=== PATIENT | male | born 1945 | race Caucasian/White ===

== ENCOUNTER 2018-06-29 18:26 | Inpatient (IN) | payer MEDICARE, MEDICAID ==
[2018-06-29 18:26] VITALS: BMI 32.9
[2018-06-29] MEDS ORDERED: Iodixanol 320 MG/ML 100 ML BOTTLE IV ONE (19:35)
--- NOTE | 2018-06-29 20:22 | ED PDOC ---
HPI:STROKE - Time Time: 20:16 - Historian Historian: Patient, Family - Chief Complaint Chief Complaint: Slurred speech - Onset Date: 06/29/18 Time: 17:30 - Timing Timing: Currently Symptomatic - Location Location: Speech - Notes: Notes:: Hx of CAD, HTN, COPD, chronic neck and back pain presenting with abnormal jaw movement and difficulty speaking, states that it occurred around 5:30, states that he felt like he can't control his jaw and it keeps moving to the left and he can't speak normally. States he has no headache, no weakness/numbness/loss of function of extremeties, no vision changes, no difficulty walking, or any other symptoms. Denies chest pain, shortness of breath. NIHSS Stroke Scale - Date/Time Evaluation Performed Date Performed: 06/29/18 When Was NIHSS Performed: Baseline - How Severe is the Stroke Level of Consciousness: 0=Alert LOC to Questions: 0=Both comments correct LOC to commands: 0=Obeys both correctly Best Gaze: 0=Normal Visual: 0=No visual loss Facial: 1=Minor asymmetry Motor Arm - Left: 0=No drift Motor Arm - Right: 0=No drift Motor Leg - Left: 0=No drift Motor Leg - Right: 0=No drift Limb Ataxia: 0=Absent Sensory: 0=Normal Best Language: 0=No aphasia Dysarthia: 1=Mild to moderate slurring Extinction & Inattention (Neglect): 0=Normal, no object Score: 2 rTPA Inclusion/Exclusion - Refusal of Treatment Patient Refused Treatment: No - Inclusion Criteria for Altepase Patient is 18 years or Older: Yes The Clinical Diagnosis of Ischemic Stroke That is Causing a Potentially Disabling Neurological Deficit: No Time of Onset is Well Established to be Less Than 270 Minute Before Treatment Would Begin: Yes Risk/Benefit Discussed With Patient/Family Member Present: Yes - Warning to TPA With Conditions Condition: Stroke Serevity Too Mild Past Medical History Reviewed: Historical Data, Nursing Documentation, Vital Signs Vital Signs: Last Vital Signs Temp 98.2 F 06/29/18 18:48 Pulse 84 06/29/18 18:48 Resp 16 06/29/18 18:48 BP 151/86 H 06/29/18 18:48 Pulse Ox 98 06/29/18 18:48 - Medical History PMH: Asthma, Fractures (Left Shoulder), HTN, Kidney Stones, Migraine, Pulmonary Embolism, Chronic Kidney Disease, Sleep Apnea (uses Bipap at home) Denies: HIV - Surgical History Surgical History: Back Surgery (CERVICAL), Cholecystectomy, Coronary Stent, Endoscopy - Family History Family History: States: Unknown Family Hx - Immunization History Hx Tetanus Toxoid Vaccination: Yes Hx Influenza Vaccination: Yes (2016) Hx Pneumococcal Vaccination: (''Not sure'') - Home Medications Home Medications: Ambulatory Orders Medication Instructions Recorded SUMAtriptan succinate [Imitrex Tab] 100 mg PO DAILY 12/31/16 Zolpidem [Ambien] 10 mg PO HS 12/31/16 Lisinopril [Prinivil] 10 mg PO DAILY 01/04/17 Ranitidine HCl [Zantac] 150 mg PO DAILY 01/04/17 Clopidogrel [Plavix] 75 mg PO DAILY #30 tab 01/11/17 Simvastatin [Zocor] 20 mg PO HS #30 tablet 01/11/17 Albuterol HFA [Ventolin HFA 90 1 - 2 puff IH Q6H PRN #1 inhaler 03/13/17 mcg/actuation (8 g)] Azithromycin 250 mg PO DAILY #6 tab 03/13/17 Prednisone [Deltasone] 40 mg PO DAILY #8 tablet 03/13/17 Ondansetron ODT [Zofran ODT] 4 mg PO Q8H PRN #6 odt 04/28/17 - Allergies Allergies/Adverse Reactions: Allergies Allergy/AdvReac Type Severity Reaction Status Date / Time Iodinated Contrast- Oral and Allergy Severe ANAPHYLAXIS Verified 06/29/18 18:47 IV Dye [Iodinated Contrast Media - IV Dye] Review of Systems ROS Statement: Except As Marked, All Systems Reviewed And Found Negative Constitutional: Negative for: Fever Cardiovascular: Negative for: Chest Pain Respiratory: Negative for: Shortness of Breath Neurological: Positive for: Change in Speech. Negative for: Weakness, Numbness , Confusion, Altered Mental Status, Headache Physical Exam - Reviewed Nursing Documentation Reviewed: Yes Vital Signs Reviewed: Yes - Physical Exam Appears: Positive for: Well, Non-toxic, No Acute Distress Head Exam: Positive for: ATRAUMATIC, NORMAL INSPECTION, NORMOCEPHALIC Skin: Positive for: Normal Color, Warm, DRY Eye Exam: Positive for: EOMI, Normal appearance, PERRL ENT: Positive for: Normal ENT Inspection Neck: Positive for: Normal, Painless ROM Cardiovascular/Chest: Positive for: Regular Rate, Rhythm Respiratory: Positive for: CNT, Normal Breath Sounds Gastrointestinal/Abdominal: Positive for: Normal Exam, Soft Back: Positive for: Normal Inspection Extremity: Positive for: Normal ROM Neurologic/Psych: Positive for: Alert, community outreach advocate II-XII, Oriented, Cerebellar Tests ( normal), Gait (normal), Other (Jaw deviates to the L when speaking, slurred speech). Negative for: Motor/Sensory Deficits, Aphasia - ECG ECG: Positive for: Interpreted By Me, Viewed By Me ECG Rhythm: Positive for: Normal QRS, Normal ST Segment, Sinus Rhythm O2 Sat by Pulse Oximetry: 98 Pulse Ox Interpretation: Normal - Radiology X-Ray: Interpreted by Me X-Ray Interpretation: No Acute Disease - Core Measure Core Measure Indicators: Code Stroke - Critical Care Total Time (In Min): 60 Documented Critical Care: Time excludes all time spent performint seperately billable procedures Medical Decision Making Medical Decision MakinPM Patient with CAD, HTN, COPD presenting with jaw deviatoin, slurred speech with onset 530PM --Delay in code stroke due to mis-triage of patient --Patient was immediately taken to CT upon realization of symptoms and possibly CVA --Either than jaw and slurred speech, no other focal deficit appreciated --Vitals stable, patient in no distress EXAM: CT Head Without Intravenous Contrast CLINICAL HISTORY: 72 years old, male; Signs and symptoms; Weakness, facial; Additional info: Code stroke TECHNIQUE: Axial computed tomography images of the head/brain without intravenous contrast. All CT scans at this facility use at least one of these dose optimization techniques: automated exposure control; mA and/or kV adjustment per patient size (includes targeted exams where dose is matched to clinical indication); or iterative reconstruction. Coronal and sagittal reformatted images were created and reviewed. COMPARISON: No relevant prior studies available. FINDINGS: Brain: No hemorrhage. Patchy areas of decreased attenuation left parietal occipital watershed periventricular white matter region from age indeterminate infarct. No hyperdense middle cerebral arteries. Moderate large chest periventricular microischemic changes. No edema. Ventricles: Appropriate for patient's age. Bones/joints: No acute fracture. Soft tissues: No radiopaque foreign body. Sinuses: No acute sinusitis. Mastoid air cells: No mastoid effusion. IMPRESSION: Age indeterminate patchy infarct left parietal occipital watershed regions. Moderately extensive periventricular white matter micro-ischemic changes. No acute intracranial hemorrhage. Thank you for allowing us to participate in the care of your patient. Dictated and Authenticated by: Quinten Seo MD 06/29/2018 7:50 PM Eastern Time ([place] & [place]) EXAM: CT Maxillofacial Without Intravenous Contrast CLINICAL HISTORY: 72 years old, male; Pain; Jaw pain; Additional info: Jaw abnormality TECHNIQUE: Axial computed tomography images of the face without intravenous contrast. All CT scans at this facility use at least one of these dose optimization techniques: automated exposure control; mA and/or kV adjustment per patient size (includes targeted exams where dose is matched to clinical indication); or iterative reconstruction. Coronal and sagittal reformatted images were created and reviewed. COMPARISON: No relevant prior studies available. FINDINGS: Bones/joints: Postsurgical changes with intervertebral disc spacers upper cervical spine C3-C5. No acute fracture. Soft tissues: No radiopaque foreign body. Orbits: Intact. Sinuses: Intact. No air-fluid levels. No mucosal thickening. Bilateral osteomeatal complex channels are patent. Dental: 3 dental implants involving the upper jaw frontal teeth and the left lateral canine. Nasal cavity/septum: Small mucosal thickening in the floor of the right nasal air passageway. IMPRESSION: 1. Small mucosal thickening in the floor of the right nasal air passageway. 2. No fractures or bony lesions of the mandible. Thank you for allowing us to participate in the care of your patient. Dictated and Authenticated by: Quinten Seo MD 06/29/2018 8:03 PM Eastern Time ([place] & [place]) 815PM Spoke with Dr. Ray and informed of case. States possibly small infarct but given low NIH score and non-severity of symptoms, TPA not indicated nor is emergent operative intervention. ASA given, head placed at 30 degrees, NS given. Cannot obtain CTA at this time due to severe contrast allergy (chart indicates anaphylaxis and patient states his reaction to contrast is "heart attack"). Will need MRI/MRA in AM. 830PM Dr. Quintanilla aware of patient, agrees to admit for Dr. York. Patient stable. 930PM Patient stable, no changes. Disposition - Clinical Impression Clinical Impression: Slurred speech - Patient ED Disposition Is Patient to be Admitted: Yes Discussed With DrKaylee: Ryne Quintanilla - Disposition Disposition Time: 20:26 Condition: SERIOUS Forms: [employer] ([place])
[2018-06-29] MEDS: Sodium Chloride 0.9% 1,000 ML IV SCH (21:07)
[2018-06-29 21:59] LABS: BASO % 0.5 % (0.0-2.0); EOS # 0.1 K/uL (0.0-0.7); LYMPH % 27.9 % (20.0-40.0); MEAN CELL VOLUME 87.6 fl (80.0-94.0); MEAN PLATELET VOLUME 9.3 fl (7.2-11.7); MONO # 0.9 K/uL (0.0-0.8); MONO % 11.9 % (0.0-10.0); NEUT # 4.2 K/uL (1.8-7.0); NEUT % 57.7 % (50.0-75.0); NRBC % 0.1 % (0.0-0.0); RBC 4.85 Mil/uL (4.40-5.90); WHITE BLOOD COUNT 7.2 K/uL (4.8-10.8)
[2018-06-29 22:04] LABS: PROTHROMBIN TIME 11.5 Seconds (9.8-13.1)
[2018-06-29 22:07] LABS: PARTIAL THROMBOPLASTIN TIME 31.2 Seconds (25.6-37.1)
[2018-06-29 22:08] LABS: ALB/GLOB RATIO 1.2 (1.0-2.1); ALBUMIN 4.1 g/dL (3.5-5.0); ALT/SGPT 54 U/L (21-72); AST/SGOT 36 U/L (17-59); BLOOD UREA NITROGEN 19 mg/dl (9-20); CALCIUM 9.2 mg/dL (8.4-10.2); GFR NON-AFRICAN AMERICAN > 60; HDL CHOLESTEROL 37 MG/DL (30-70)
[2018-06-29 22:19] LABS: LDL CHOLESTEROL 51 mg/dL (0-129)
[2018-06-30] MEDS ORDERED: Potassium Chloride 20 mEq ER Tab PO ONE (02:17)
--- NOTE | 2018-06-30 08:04 | CARD ---
APPROVED REPORT Date of service: 06/29/2018 <Conclusion> Normal sinus rhythm Normal ECG
--- NOTE | 2018-06-30 08:36 | RAD ---
Date of service: 06/29/2018 HISTORY: Code Stroke COMPARISON: 2016 FINDINGS: LUNGS: There is mild subtle subsegmental atelectasis and volume loss at the right lung base. No CHF is seen. PLEURA: Overlying soft tissue limits evaluation for pleural effusion. Node appreciable effusion is noted. CARDIOVASCULAR: No CHF. Heart is unchanged. OSSEOUS STRUCTURES: No significant abnormalities. VISUALIZED UPPER ABDOMEN: Normal. OTHER FINDINGS: None. IMPRESSION: Mild increase in hazy density at the right lung base probably representing mild subsegmental atelectasis and/or overlying soft tissue which limits evaluation. Repeat film would be suggested.
[2018-06-30] MEDS ORDERED: Albuterol HFA 90 mcg/actuation (8 g) IH PRN (10:20)
--- NOTE | 2018-06-30 10:47 | CT ---
Date of service: 06/29/2018 PROCEDURE: CT HEAD WITHOUT CONTRAST. HISTORY: code stroke COMPARISON: None available. TECHNIQUE: Axial computed tomography images were obtained through the head/brain without intravenous contrast. Radiation dose: Total exam DLP = 995 mGy-cm. This CT exam was performed using one or more of the following dose reduction techniques: Automated exposure control, adjustment of the mA and/or kV according to patient size, and/or use of iterative reconstruction technique. FINDINGS: HEMORRHAGE: No intracranial hemorrhage. BRAIN: No mass effect or edema. There is no evidence of cortical effacement. There is small patchy area decreased density in the left posterior parietal lobe region probably representing small chronic infarct. Scattered small vessel changes are seen elsewhere in the white matter tracts. No extra-axial collection is identified. No appreciable recent infarct is noted. VENTRICLES: Unremarkable. No hydrocephalus. CALVARIUM: Unremarkable. PARANASAL SINUSES: Mild mucosal changes in the sinuses. Mastoid air cells are well aerated. MASTOID AIR CELLS: Unremarkable as visualized. No inflammatory changes. OTHER FINDINGS: None. IMPRESSION: No evidence of recent infarct or intracranial hemorrhage. Probable small left posterior parietal chronic appearing white matter infarct. Mild to moderate scattered small vessel changes elsewhere in the white matter tracts. No cortical effacement.
--- NOTE | 2018-06-30 10:51 | CT ---
Date of service: 06/29/2018 PROCEDURE: CT MAXILLOFACIAL BONES WITHOUT CONTRAST HISTORY: jaw abnormality COMPARISON: CT head same day. TECHNIQUE: Contiguous axial CT images of the maxillofacial bones were obtained. Coronal and sagittal reformats were generated. Radiation dose: Total exam DLP = 907 mGy-cm. This CT exam was performed using one or more of the following dose reduction techniques: Automated exposure control, adjustment of the mA and/or kV according to patient size, and/or use of iterative reconstruction technique. FINDINGS: NASAL BONES: No fracture. ORBITS: No fracture. No orbital emphysema retro-orbital regions are unremarkable. PARANASAL SINUSES/ MASTOIDS: Mild mucosal thickening in the paranasal sinuses without fluid level. Ostiomeatal complexes are grossly patent. Mild mucosal thickening in the nasal cavity regions. Mastoid air cells are well aerated as well as the middle ear cavity regions. MAXILLA: Intact. MANDIBLE/ TEMPOROMANDIBULAR JOINTS: Intact mandibles. There is evidence of dental disease and prior dental implants. There are degenerative changes seen in the temporomandibular joint regions without significant condylar head flattening SKULL BASE: Unremarkable. TEMPORAL BONES: Intact. OTHER FINDINGS: Degenerative changes and postsurgical changes are seen in the upper cervical spine region. C1-C2 articulation is within normal limits. Please see CT scan of brain for report of the brain images. IMPRESSION: No appreciable fracture. Mild DJD of the temporomandibular joints. No evidence of acute sinusitis. Dental disease with dental implants. Dental consultation would be suggested
[2018-06-30] MEDS: Sodium Chloride 0.9% 1,000 ML IV SCH ×2 (10:56→16:32)
[2018-06-30 12:16] LABS: BLOOD UREA NITROGEN 18 mg/dl (9-20); CALCIUM 9.1 mg/dL (8.4-10.2); GFR NON-AFRICAN AMERICAN > 60
--- NOTE | 2018-06-30 16:48 | CP.PCM.CON ---
History of Present Illness - History of Present Illness History of Present Illness: Neurology Consultation Note: Mr. Fuller is a 72-year-old man with a past medical history of CAD, HTN, COPD , chronic neck and back pain presenting with abnormal jaw movement and difficulty speaking. The symptoms started yesterday at around 5:30 PM. NIHSS was a 1 for some dysarthria. The patient was not a good candidate for IV tPA due to being outside the 3 hour time window and having very minor symptoms that were difficult to localize. He is allergic to iodine contrast, and could not obtain a CTA for further evaluation. Today, the patient feels like he is back to normal and no longer has any dysarthria. Review of Systems - Review of Systems All systems: reviewed and no additional remarkable complaints except Past Patient History - Infectious Disease Hx of Infectious Diseases: None - Past Medical History & Family History Past Medical History?: Yes - Past Social History Smoking Status: Former Smoker - CARDIAC Hx Cardiac Disorders: Yes Hx Hypertension: Yes - PULMONARY Hx Respiratory Disorders: Yes Hx Asthma: Yes Hx Chronic Obstructive Pulmonary Disease (COPD): Yes Hx Pulmonary Embolism: Yes Hx Sleep Apnea: Yes (uses Bipap at home) - NEUROLOGICAL Hx Neurological Disorder: Yes Hx Migraine: Yes - HEENT Hx HEENT Problems: No - RENAL Hx Chronic Kidney Disease: Yes Hx Kidney Stones: Yes - ENDOCRINE/METABOLIC Hx Endocrine Disorders: No - HEMATOLOGICAL/ONCOLOGICAL Hx Blood Disorders: No Hx AIDS: No Hx Human Immunodeficiency Virus (HIV): No - INTEGUMENTARY Hx Dermatological Problems: No - MUSCULOSKELETAL/RHEUMATOLOGICAL Hx Musculoskeletal Disorders: Yes Hx Falls: No Hx Fractures: Yes (Left Shoulder) - GASTROINTESTINAL Hx Gastrointestinal Disorders: Yes Hx Gastroesophageal Reflux: Yes - GENITOURINARY/GYNECOLOGICAL Hx Genitourinary Disorders: Yes Hx Prostate Problems: No (denies) Other/Comment: KIDNEY STONES - PSYCHIATRIC Hx Psychophysiologic Disorder: No Hx Substance Use: No - SURGICAL HISTORY Hx Surgeries: Yes Hx Cholecystectomy: Yes Hx Coronary Stent: Yes - ANESTHESIA Hx Anesthesia: Yes Hx Anesthesia Reactions: No Hx Malignant Hyperthermia: No Meds Allergies/Adverse Reactions: Allergies Allergy/AdvReac Type Severity Reaction Status Date / Time Iodinated Contrast- Oral and Allergy Severe ANAPHYLAXIS Verified 06/29/18 18:47 IV Dye [Iodinated Contrast Media - IV Dye] - Medications Medications: Current Medications Albuterol (Ventolin Hfa 90 Mcg/Actuation (8 G)) 2 puff IH Q6H PRN PRN Reason: Wheezing Atorvastatin Calcium (Lipitor) 10 mg PO HS [facility] Clopidogrel Bisulfate (Plavix) 75 mg PO DAILY [facility] Last Admin: 06/30/18 10:55 Dose: 75 mg Famotidine (Pepcid) 20 mg PO DAILY [facility] Last Admin: 06/30/18 10:55 Dose: 20 mg Sodium Chloride (Sodium Chloride 0.9%) 1,000 mls @ 100 mls/hr IV .Q10H [facility] Last Admin: 06/30/18 16:32 Dose: Not Given Lidocaine (Lidoderm) 1 ea TD Q12 [facility] Lisinopril (Zestril) 10 mg PO DAILY [facility] Last Admin: 06/30/18 10:55 Dose: 10 mg Oxycodone/Acetaminophen (Percocet 5/325 Mg Tab) 1 tab PO Q6 PRN PRN Reason: Pain, moderate (4-7) Stop: 07/03/18 10:27 Pregabalin (Lyrica) 75 mg PO BID [facility] Last Admin: 06/30/18 16:31 Dose: 75 mg Zolpidem Tartrate (Ambien) 5 mg PO HS PRN PRN Reason: insomia Physical Exam - Neurological Exam Neurological exam: Alert, CN II-XII Intact, Motor Sensory Deficit, Normal Gait, Oriented x3, Reflexes Normal Additional comments: NIHSS = 0 Results - Vital Signs Recent Vital Signs: Last Vital Signs Temp 97.3 F L 06/30/18 16:10 Pulse 79 06/30/18 16:10 Resp 18 06/30/18 16:10 BP 103/65 06/30/18 16:10 Pulse Ox 99 06/30/18 16:10 - Labs Result Diagrams: 06/29/18 21:50 06/30/18 10:48 Labs: Laboratory Results - last 24 hr 06/29/18 06/29/18 06/29/18 01:00 21:02 21:50 WBC 7.2 RBC 4.85 Hgb 14.0 Hct 42.5 MCV 87.6 MCH 29.0 MCHC 33.0 RDW 14.0 Plt Count 189 MPV 9.3 Neut % (Auto) 57.7 Lymph % (Auto) 27.9 [place] % (Auto) 11.9 H Eos % (Auto) 2.0 Baso % (Auto) 0.5 Neut # (Auto) 4.2 Lymph # (Auto) 2.0 [place] # (Auto) 0.9 H Eos # (Auto) 0.1 Baso # (Auto) 0.0 PT INR APTT Sodium Potassium Chloride Carbon Dioxide Anion Gap BUN Creatinine Est GFR ( Amer) Est GFR (Non-Af Amer) POC Glucose (mg/dL) Random Glucose Hemoglobin A1c 8.5 H D Calcium Total Bilirubin AST ALT Alkaline Phosphatase Troponin I Total Protein Albumin Globulin Albumin/Globulin Ratio Triglycerides Cholesterol LDL Cholesterol Direct HDL Cholesterol Blood Type Blood Type Confirm B POSITIVE Antibody Screen BBK History Checked 06/29/18 06/29/18 06/29/18 21:50 21:50 21:50 WBC RBC Hgb Hct MCV MCH MCHC RDW Plt Count MPV Neut % (Auto) Lymph % (Auto) [place] % (Auto) Eos % (Auto) Baso % (Auto) Neut # (Auto) Lymph # (Auto) [place] # (Auto) Eos # (Auto) Baso # (Auto) PT 11.5 INR 1.0 APTT 31.2 Sodium 138 Potassium 3.3 L Chloride 104 Carbon Dioxide 27 Anion Gap 10 BUN 19 Creatinine 0.6 L Est GFR ( Amer) > 60 Est GFR (Non-Af Amer) > 60 POC Glucose (mg/dL) Random Glucose 162 H Hemoglobin A1c 8.5 H Calcium 9.2 Total Bilirubin 0.2 AST 36 ALT 54 Alkaline Phosphatase 98 Troponin I < 0.0120 Total Protein 7.4 Albumin 4.1 Globulin 3.4 Albumin/Globulin Ratio 1.2 Triglycerides 136 Cholesterol 114 LDL Cholesterol Direct 51 HDL Cholesterol 37 Blood Type Blood Type Confirm Antibody Screen BBK History Checked 06/29/18 06/30/18 06/30/18 21:52 01:38 10:48 WBC RBC Hgb Hct MCV MCH MCHC RDW Plt Count MPV Neut % (Auto) Lymph % (Auto) [place] % (Auto) Eos % (Auto) Baso % (Auto) Neut # (Auto) Lymph # (Auto) [place] # (Auto) Eos # (Auto) Baso # (Auto) PT INR APTT Sodium 139 Potassium 3.7 Chloride 102 Carbon Dioxide 30 Anion Gap 11 BUN 18 Creatinine 0.6 L Est GFR ( Amer) > 60 Est GFR (Non-Af Amer) > 60 POC Glucose (mg/dL) 151 H Random Glucose 172 H Hemoglobin A1c Calcium 9.1 Total Bilirubin AST ALT Alkaline Phosphatase Troponin I Total Protein Albumin Globulin Albumin/Globulin Ratio Triglycerides Cholesterol LDL Cholesterol Direct HDL Cholesterol Blood Type B POSITIVE Blood Type Confirm Antibody Screen Negative BBK History Checked No verified bt Assessment & Plan (1) Slurred speech Assessment and Plan: This may have represented a TIA. Will obtain MRI of the brain without contrast as well as MRA of the head/neck without contrast. Continue current management and TIA work-up. Status: Resolved (2) Headache Assessment and Plan: The patient has a history of migraine headaches and complains of a migraine today. He usually takes Imitrex, but we will avoid this for now since we are concerned about vascular spasm. Will treat the headache with depakote, magnesium and decadron. Status: Acute
[2018-06-30] MEDS ORDERED: Valproate 500 MG in Sodium Chloride 0.9% 100 ML IVPB ONE (17:22)
[2018-06-30] MEDS ORDERED: Dexamethasone 10 MG in Sodium Chloride 0.9% 50 ML IVPB ONE (17:22)
[2018-06-30] MEDS ORDERED: Magnesium Sulfate 1 GM in Dextrose 5% In Water 100 ML IVPB ONE (17:22)
[2018-06-30] MEDS: Lidocaine 5% Patch TD SCH (18:29)
[2018-06-30] MEDS: Oxycodone/Acetaminophen 5/325 mg Tab PO PRN (18:30)
[2018-07-01] MEDS: Sodium Chloride 0.9% 1,000 ML IV SCH (02:30)
[2018-07-01] MEDS: Oxycodone/Acetaminophen 5/325 mg Tab PO PRN ×3 (04:06→22:11)
[2018-07-01 05:35] LABS: HEMOGLOBIN 13.8 g/dL (12.0-18.0); MEAN CELL VOLUME 88.3 fl (80.0-94.0); MEAN CORPUSCULAR HEMOGLOBIN 29.2 pg (27.0-31.0); RBC 4.73 Mil/uL (4.40-5.90); RED CELL DISTRIBUTION WIDTH 13.8 % (11.5-14.5); WHITE BLOOD COUNT 6.9 K/uL (4.8-10.8)
[2018-07-01 06:01] LABS: LDL CHOLESTEROL 62 mg/dL (0-129)
[2018-07-01 06:11] LABS: ALB/GLOB RATIO 1.2 (1.0-2.1); ALBUMIN 4.1 g/dL (3.5-5.0); ALT/SGPT 44 U/L (21-72); AST/SGOT 37 U/L (17-59); BLOOD UREA NITROGEN 16 mg/dl (9-20); CALCIUM 9.2 mg/dL (8.4-10.2); GFR NON-AFRICAN AMERICAN > 60; HDL CHOLESTEROL 42 MG/DL (30-70)
[2018-07-01] MEDS: Lidocaine 5% Patch TD SCH (09:02)
--- NOTE | 2018-07-01 11:46 | MRI ---
Date of service: 07/01/2018 PROCEDURE: Magnetic Resonance Angiography Brain HISTORY: r/o cva COMPARISON: None available. TECHNIQUE: 3D time of flight MR angiography of the intracranial arteries was performed. Rotating maximum intensity projection images were generated. FINDINGS: INTERNAL CAROTID ARTERIES: Unremarkable. The skull base, petrous, cavernous and supraclinoid segments are bilaterally widely patient. ANTERIOR CEREBRAL ARTERIES: Unremarkable. A1 and A2 segments are widely patent. Smaller distal branches unremarkable, as visualized. MIDDLE CEREBRAL ARTERIES: Unremarkable. M1 and M2 segments are widely patent. Perisylvian branches grossly symmetric. POSTERIOR CIRCULATION: Basilar Artery: Widely patent but ectatic. Distal Vertebral Arteries: Unremarkable. Posterior Cerebral Arteries: Unremarkable. Posterior Inferior Cerebellar Arteries: Unremarkable. ANEURYSM/ VASCULAR MALFORMATIONS: None. OTHER FINDINGS: None. IMPRESSION: Unremarkable MR angiography of the brain.
--- NOTE | 2018-07-01 12:08 | US ---
Date of service: 07/01/2018 PROCEDURE: Ultrasound of the Kidneys HISTORY: Flank pain. COMPARISON: None available. TECHNIQUE: Sonogram of the kidneys. FINDINGS: RIGHT KIDNEY: Measures: 5.8 x 7.3 x 12.5 cm. Normal in size, contour and echogenicity. Lower pole calculus 1.1 cm. Midpole calculus 1.1 cm. LEFT KIDNEY: Measures: 6.8 x 6.9 x 12.0 cm. Normal in size, contour and echogenicity. Lower pole calculus 10 mm. Adjacent lower pole calculus 10 mm. Incidental finding(s): Simple cyst midpole region 1.5 cm. OTHER FINDINGS: None. IMPRESSION: Nonobstructing bilateral renal calculi (4 identified). None exceed 11 mm in size.
--- NOTE | 2018-07-01 14:23 | MRI ---
Date of service: 07/01/2018 PROCEDURE: MRI BRAIN WITHOUT CONTRAST HISTORY: r/o cva COMPARISON: Noncontrast head CT 06/29/2018. TECHNIQUE: Multiplanar, multisequence MR images of the brain were obtained without intravenous contrast enhancement. FINDINGS: HEMORRHAGE: None DWI: No evidence of an acute or early subacute infarction. BRAIN PARENCHYMA: Good corticomedullary differentiation is seen. Proportional, diffuse expansion of the ventriculosulcal and cisternal spaces is appreciated with white matter signal changes compatible with diffuse cerebral atrophy and chronic microangiopathy. No suspicious extra-axial fluid collection is identified and the midline brain anatomy appears grossly nonfocal as imaged. There is no mass effect throughout. Note, there is a small cortical vein a entering into the left parietal lobe and appear to terminate near or at the periventricular white matter likely representing a small developmental venous anomaly. This can be proven by MRI with contrast if clinically warranted. VENTRICLES: Unremarkable. No hydrocephalus. CRANIUM: Unremarkable. ORBITS: Grossly unremarkable. PARANASAL SINUSES/MASTOIDS: Clear VASCULAR SYSTEM: Skull base flow voids intact. OTHER FINDINGS: None. IMPRESSION: Age-related degenerative findings are appreciated without acute intracranial findings by standard MR criteria. Note is made of a probable left developmental venous anomaly left parietal lobe. This can be proven by contrast MRI if clinically warranted. This is an incidental finding.
--- NOTE | 2018-07-01 14:26 | MRI ---
Date of service: 07/01/2018 PROCEDURE: MR Angiography of the neck without contrast HISTORY: r/o cva COMPARISON: None available. TECHNIQUE: 3D [id number] angiography of the neck was performed. Rotating maximum intensity projection images of the cervical carotid and vertebral arteries were generated. The origins of the common carotid arteries were not visualized, which is a limitation inherent to the non-contrast time of flight technique. FINDINGS: RIGHT CAROTID ARTERIES: Common Carotid Artery: Normal. Carotid Bifurcation: Normal. Internal Carotid Artery:Normal. External Carotid Artery (proximal branches): Normal. LEFT CAROTID ARTERIES: Common Carotid Artery: Normal. Carotid Bifurcation: Normal. Internal Carotid Artery:Normal. External Carotid Artery (proximal branches): Normal. VERTEBRAL ARTERIES: Left dominant vertebrobasilar circulation. Right Vertebral Artery: Normal. Left Vertebral Artery: Normal. OTHER FINDINGS: None. IMPRESSION: No significant common or internal carotid artery or vertebral artery stenosis appreciated in noncontrast MR Angiography of the neck.
--- NOTE | 2018-07-02 | PN ---
DATE: 07/01/2018 DAILY PROGRESS NOTE SUBJECTIVE: The patient is seen today, 07/01/2018. He has no further neurological symptoms. MRI and MRA of the head were ordered by Neurology. PHYSICAL EXAMINATION: VITAL SIGNS: Blood pressure is 112/73, temperature 97.5, respiratory rate 18, and pulse 92. HEENT: Pupils equal and reactive to light. Normal-appearing mucosa of the conjunctivae, oropharynx, and mucosa. NECK: Supple. No JVD. No carotid bruits. No lymph nodes. No thyromegaly. CHEST AND LUNGS: Bilateral symmetrical expansion. Good air exchange. No rales. No rhonchi. CARDIOVASCULAR SYSTEM: PMI not localized. S1 and S2. No additional sounds. ABDOMEN: Normoactive bowel sounds. No tenderness. No organomegaly. No masses. EXTREMITIES: No cyanosis. No clubbing. No edema. CENTRAL NERVOUS SYSTEM: Alert, awake, and oriented x3. No neurological deficit could be appreciated. ASSESSMENT AND PLAN: Transient difficulty speech as well as deviation of the jaw that is most likely secondary to medication side effect. The patient was on Plavix while he has had these symptoms. Neurology workup was ordered. We will follow up. We will follow the neurology recommendations. Ryne Quintanilla MD
[2018-07-02 05:08] VITALS: O2SAT 100
--- NOTE | 2018-07-02 06:10 | HP ---
This is a late entry for history and physical done on 06/30/2018. HISTORY OF PRESENT ILLNESS: The patient is a 72-year-old male with history of multiple medical problems including cervical spine surgery, migraine, coronary artery disease, status post PCI, presented with symptoms of difficulty speech as well as twisting of the jaw. The patient stated that these symptoms have never happened before. The patient is on multiple pain medications, both long-acting and short-acting opioids as well as high dose of Lyrica. The patient was evaluated initially in the emergency room and he was not to any thrombolytic therapy and he was admitted to telemetry floor for further management. Other review of systems: ALLERGIES: POSITIVE FOR IODINATED CONTRAST. MEDICATIONS: Reviewed as per MAR and opioid medications were stopped and Lyrica was decreased. SOCIAL HISTORY: Denied history of smoking, EtOH, or substance abuse. FAMILY HISTORY: Noncontributory. PAST MEDICAL HISTORY: As above. PHYSICAL EXAMINATION: GENERAL: The patient was not in any cardiopulmonary distress at the time of this examination. VITAL SIGNS: Blood pressure 103/65, temperature 97.3, respiratory rate 18, and pulse 79. HEENT: Pupils equal, reactive to light. Normal-appearing mucosa of the conjunctivae, oropharynx and nasal membrane mucosa. NECK: Supple. No JVD. No carotid bruit. No lymph node. No thyromegaly. CHEST AND LUNGS: Bilateral symmetrical expansion. Good air exchange. No rales, no rhonchi. CARDIOVASCULAR SYSTEM: PMI not localized. S1, S2. No additional sounds. ABDOMEN: Normoactive bowel sounds. No tenderness. No organomegaly. No masses. EXTREMITIES: No cyanosis, no clubbing, no edema. [employer] PERSONALITY: Alert, awake, oriented x3. No neurological deficit could be appreciated. ASSESSMENT: 1. Transient symptoms of mouth drooping as well as difficulty speech. Differential diagnoses include transient ischemic attack and medication side effect. 2. History of coronary artery disease, status post percutaneous coronary intervention. 3. Degenerative spine disease, status post multiple cervical spine surgeries. 4. Hypertension. PLAN: The narcotic medications were withheld and it is only placed as p.r.n. Lidoderm patch is added for pain in the cervical spine. Follow Neurology recommendations. [facility] MD Dwight [facility] # [id number]
[2018-07-02] MEDS: Lidocaine 5% Patch TD SCH (08:51)
--- NOTE | 2018-07-02 09:12 | CARD ---
APPROVED REPORT Date of service: 07/01/2018 <Conclusion> Normal sinus rhythm Low voltage QRS Borderline ECG
[2018-07-02] MEDS ORDERED: Insulin Lispro (humaLOG) 100 Units/ml Inj SC SCH (11:30)
[2018-07-02] MEDS: Oxycodone/Acetaminophen 5/325 mg Tab PO PRN (12:24)
[2018-07-02 13:17] VITALS: BP 145/84; PULSE 74; RESP 20; TEMP 97.8
--- NOTE | 2018-07-03 06:58 | DS ---
REASON FOR ADMISSION: This is a 72-year-old male with history of multiple medical problems, who was admitted for possible TIA. COURSE OF HOSPITALIZATION: The patient was admitted to medical telemetry floor after code stroke was called, but the patient was not found a candidate for tPA. Neurology consult was done by Dr. Ray. The patient had an MRI and MRA done that did not show any abnormalities. The dysarthria as well as deviating of the jaw on the day of admission was thought to be due to medication side effect. The patient has been on multiple narcotic pain medications as well as Lyrica. The patient was advised to taper these medications, and he was also having hemoglobin A1c of 8.6. The patient was asked to resume his metformin that he states he has at home. The patient was discharged in a stable condition to follow with his primary care physician, Dr. Amy York. FINAL DIAGNOSES: 1. Dysarthria and facial droop and jaw deviation that was thought to be due to medication side effect. 2. Type 2 diabetes mellitus. 3. Degenerative spine disease, status post multiple cervical spine surgery. 4. Coronary artery disease, status post percutaneous coronary intervention, on antiplatelets. Ryne Quintanilla MD
== END 2018-07-02 16:42 | disposition home or self-care (01) | DRG 93 ==
LOC: H.ER 18:26 → H.ERHOLD 20:26 → H.TEL 06-30 02:32
PROVIDERS: ADMIT Internal Medicine; ATTEND Internal Medicine
DX: R47.1 Dysarthria and anarthria (principal); T42.6X5A Adverse effect of other antiepileptic and sedative-hypnotic drugs, initial encounter; T40.695A Adverse effect of other narcotics, initial encounter; R47.81 Slurred speech; R29.810 Facial weakness; M26.53 Deviation in opening and closing of the mandible; G89.29 Other chronic pain; G47.30 Sleep apnea, unspecified; Y92.009 Unspecified place in unspecified non-institutional (private) residence as the place of occurrence of the external cause; G43.909 Migraine, unspecified, not intractable, without status migrainosus; I25.10 Atherosclerotic heart disease of native coronary artery without angina pectoris; I12.9 Hypertensive chronic kidney disease with stage 1 through stage 4 chronic kidney disease, or unspecified chronic kidney disease; N18.9 Chronic kidney disease, unspecified; E11.22 Type 2 diabetes mellitus with diabetic chronic kidney disease; K21.9 Gastro-esophageal reflux disease without esophagitis; J44.9 Chronic obstructive pulmonary disease, unspecified; M54.2 Cervicalgia; G31.89 Other specified degenerative diseases of nervous system; Z95.5 Presence of coronary angioplasty implant and graft; Z86.711 Personal history of pulmonary embolism; Z79.02 Long term (current) use of antithrombotics/antiplatelets; Z91.041 Radiographic dye allergy status; Z87.442 Personal history of urinary calculi; Z87.891 Personal history of nicotine dependence

== ENCOUNTER 2018-09-05 07:50 | Observation (INO) | payer MEDICARE, MEDICAID ==
[2018-09-05 07:51] VITALS: BMI 29.8
[2018-09-05] MEDS ORDERED: Sodium Chloride 0.9% 1,000 ML IV STA (08:34)
--- NOTE | 2018-09-05 08:37 | ED PDOC ---
HPI: Abdomen Time Seen by Provider: 09/05/18 08:22 Chief Complaint (Nursing): Abdominal Pain Chief Complaint (Provider): Abdominal Pain History Per: Patient History/Exam Limitations: no limitations Onset/Duration Of Symptoms: Sudden Onset (0600) Current Symptoms Are (Timing): Still Present Additional Complaint(s): Yumiko Fuller is a 72 year old male, with a PMHx of CAD s/p stents, renal colic, and diabetes, presenting for evaluation of abdominal pain associated with nausea and vomiting since 0600. Patient denies any diarrhea, fever, chills, hematochezia, urinary symptoms, and chest pain. Past Medical History Reviewed: Historical Data, Nursing Documentation, Vital Signs Vital Signs: Last Vital Signs Temp 96.8 F L 09/05/18 08:02 Pulse 122 H 09/05/18 08:02 Resp 18 09/05/18 08:02 BP 157/81 H 09/05/18 08:02 Pulse Ox 97 09/05/18 08:02 - Medical History PMH: Asthma, CAD, COPD, Fractures (Left Shoulder), HTN (NO LONGER TAKING MED.), Kidney Stones, Migraine, Pulmonary Embolism ("?-NEVER CONFIRMED"), Chronic Kidney Disease, Sleep Apnea (USES CPAP AT HOME) Denies: HIV - Surgical History Surgical History: Back Surgery (CERVICAL), Cholecystectomy, Coronary Stent (X2), Endoscopy - Family History Family History: States: Unknown Family Hx - Immunization History Hx Tetanus Toxoid Vaccination: Yes Hx Influenza Vaccination: Yes (2016) Hx Pneumococcal Vaccination: (''Not sure'') - Home Medications Home Medications: Ambulatory Orders Medication Instructions Recorded SUMAtriptan succinate [Imitrex Tab] 100 mg PO DAILY 12/31/16 Zolpidem [Ambien] 10 mg PO HS 12/31/16 Ranitidine HCl [Zantac] 150 mg PO DAILY 01/04/17 Clopidogrel [Plavix] 75 mg PO DAILY #30 tab 01/11/17 Albuterol HFA [Ventolin HFA 90 1 - 2 puff IH Q6H PRN #1 inhaler 03/13/17 mcg/actuation (8 g)] Pregabalin [Lyrica] 150 mg PO BID 06/30/18 Aspirin 81 mg PO DAILY #30 tab.chew 07/02/18 MetFORMIN [glucoPHAGE] 500 mg PO BID #60 tab 07/02/18 oxyCODONE [oxycodone Hydrochloride] 10 mg PO TID 08/28/18 - Allergies Allergies/Adverse Reactions: Allergies Allergy/AdvReac Type Severity Reaction Status Date / Time Iodinated Contrast- Oral and Allergy Severe ANAPHYLAXIS Verified 07/13/18 23:21 IV Dye [Iodinated Contrast Media - IV Dye] Review of Systems ROS Statement: Except As Marked, All Systems Reviewed And Found Negative Constitutional: Negative for: Fever, Chills Cardiovascular: Negative for: Chest Pain Gastrointestinal: Positive for: Nausea, Vomiting, Abdominal Pain (epigastric). Negative for: Diarrhea, Hematochezia Genitourinary Male: Negative for: Dysuria, Frequency, Incontinence Physical Exam - Reviewed Nursing Documentation Reviewed: Yes Vital Signs Reviewed: Yes - Physical Exam Appears: Positive for: Non-toxic, No Acute Distress Head Exam: Positive for: ATRAUMATIC, NORMAL INSPECTION, NORMOCEPHALIC Skin: Positive for: Normal Color, Warm, Dry. Negative for: Rash Eye Exam: Positive for: EOMI, Normal appearance, PERRL ENT: Positive for: Normal ENT Inspection Neck: Positive for: Normal, Painless ROM, Supple Cardiovascular/Chest: Positive for: Regular Rate, Rhythm. Negative for: Murmur Respiratory: Positive for: Normal Breath Sounds. Negative for: Respiratory Distress Gastrointestinal/Abdominal: Positive for: Soft, Tenderness (epigastric). Negative for: Guarding, Rebound Back: Positive for: Normal Inspection. Negative for: L CVA Tenderness, R CVA Tenderness, Vertebral Tenderness Extremity: Positive for: Normal ROM. Negative for: Pedal Edema, Deformity Neurologic/Psych: Positive for: Alert, Oriented (x3). Negative for: Motor/Sensory Deficits - Laboratory Results Result Diagrams: 09/05/18 08:30 09/05/18 08:30 - ECG O2 Sat by Pulse Oximetry: 97 (RA) Pulse Ox Interpretation: Normal Medical Decision Making Medical Decision Makin Plan: -CT abdomen and pelvis -EKG -CMP -Lipase -Urine dip -CBC -Morphine 2mg IVP -1L NS IVB -Pepcid 20mg IVP -Zofran 4mg IVP -Reevaluation Scribe Attestation: Documented by Dante Savage, acting as a scribe for Eddie Calzada MD. Provider Scribe Attestation: All medical record entries made by the Scribe were at my direction and personally dictated by me. I have reviewed the chart and agree that the record a ccurately reflects my personal performance of the history, physical exam, medical decision making, and the department course for this patient. I have also personally directed, reviewed, and agree with the discharge instructions and disposition. Disposition - Clinical Impression Clinical Impression: Intractable abdominal pain - Patient ED Disposition Is Patient to be Admitted: Yes - Disposition Disposition Time: 11:46 Condition: FAIR Forms: [employer] ([place]an) - Pt Status Changed To: Hospital Disposition Of: Observation - POA Present On Arrival: None
[2018-09-05] MEDS ORDERED: Morphine 4 MG/ML VIAL ONE ×3 (08:58→17:58)
[2018-09-05 09:07] LABS: BASO % 0.4 % (0.0-2.0); EOS # 0.1 K/uL (0.0-0.7); EOS % 1.5 % (0.0-4.0); HEMOGLOBIN 15.1 g/dL (12.0-18.0); LYMPH # 1.2 K/uL (1.0-4.3); LYMPH % 13.9 % (20.0-40.0); MEAN CELL VOLUME 87.7 fl (80.0-94.0); MEAN CORPUSCULAR HEMOGLOBIN 28.7 pg (27.0-31.0); MEAN CORPUSCULAR HGB CONC 32.7 g/dL (33.0-37.0); MEAN PLATELET VOLUME 10.2 fl (7.2-11.7); MONO # 0.6 K/uL (0.0-0.8); MONO % 7.2 % (0.0-10.0); NEUT # 6.7 K/uL (1.8-7.0); NRBC % 0.1 % (0.0-0.0); RBC 5.27 Mil/uL (4.40-5.90); RED CELL DISTRIBUTION WIDTH 13.9 % (11.5-14.5); WHITE BLOOD COUNT 8.7 K/uL (4.8-10.8)
[2018-09-05 09:24] LABS: ALB/GLOB RATIO 1.4 (1.0-2.1); ALBUMIN 4.5 g/dL (3.5-5.0); ALT/SGPT 80 U/L (21-72); AST/SGOT 43 U/L (17-59); BLOOD UREA NITROGEN 14 mg/dl (9-20); CALCIUM 9.1 mg/dL (8.4-10.2); GFR NON-AFRICAN AMERICAN > 60; LIPASE 49 U/L (23-300)
--- NOTE | 2018-09-05 10:07 | CT ---
Date of service: 09/05/2018 PROCEDURE: CT Abdomen and Pelvis without intravenous contrast HISTORY: r/o kidney stone COMPARISON: 07/01/2018. Renal ultrasound. Summary of findings on the comparison examination: Bilateral nonobstructing calculi none exceeding 11 mm in size. TECHNIQUE: Unenhanced. Neither IV nor oral contrast administered Radiation dose: Total exam DLP = 694.06 mGy-cm. This CT exam was performed using one or more of the following dose reduction techniques: Automated exposure control, adjustment of the mA and/or kV according to patient size, and/or use of iterative reconstruction technique. FINDINGS: LOWER THORAX: Unremarkable. LIVER: Unremarkable. No gross lesion or ductal dilatation. GALLBLADDER AND BILE DUCTS: Status post cholecystectomy. No abnormality is seen in the gallbladder fossa. PANCREAS: Unremarkable. No gross lesion or ductal dilatation. SPLEEN: Unremarkable. ADRENALS: Unremarkable. No mass. KIDNEYS AND URETERS: Innumerable bilateral renal calculi nonobstructing. The preponderance of which are 1 cm or less. No evidence obstructive uropathy, hydronephrosis or hydroureter. VASCULATURE: Unremarkable. No aortic aneurysm. Atherosclerotic calcification and mural plaque present. Findings are seen throughout the aorta BOWEL: Unremarkable. No obstruction. No gross mural thickening. APPENDIX: A normal appendix is visualized in it's entirety. PERITONEUM: Unremarkable. No free fluid. No free air. LYMPH NODES: Unremarkable. No enlarged lymph nodes. BLADDER: Unremarkable. REPRODUCTIVE: Unremarkable. BONES: No acute fracture. Sclerotic focus likely benign L1 vertebral body. OTHER FINDINGS: None. IMPRESSION: Bilateral upper tract/renal calculi nonobstructing. No evidence of ureteral or bladder calculi. Additional benign and/or incidental findings described above.
[2018-09-05] MEDS ORDERED: Potassium Chloride 20 mEq ER Tab PO ONE (10:20)
[2018-09-05] MEDS ORDERED: Potassium CL 10 MEQ/50 ML 50 ML IVPB ONE (10:50)
[2018-09-05] MEDS ORDERED: Potassium CL 10 MEQ/50 ML 50 ML ONE (11:45)
[2018-09-05] MEDS ORDERED: Albuterol HFA 90 mcg/actuation (8 g) IH PRN (19:40)
[2018-09-05] MEDS: Insulin Lispro (humaLOG) 100 Units/ml Inj SC SCH (23:58)
[2018-09-06] MEDS: Morphine 4 MG/ML VIAL IVP PRN ×2 (04:12→10:17)
[2018-09-06] MEDS: Insulin Lispro (humaLOG) 100 Units/ml Inj SC SCH ×3 (09:03→18:13)
[2018-09-06] MEDS ORDERED: oxyCODONE 10 mg Immediate Release Tab PO PRN (09:43)
--- NOTE | 2018-09-06 09:47 | CARD ---
APPROVED REPORT Date of service: 09/05/2018 EKG Measurement Heart [id number] <Conclusion> Sinus tachycardia Low voltage QRS Borderline ECG
[2018-09-06 11:07] LABS: BLOOD UREA NITROGEN 14 mg/dl (9-20); CALCIUM 9.9 mg/dL (8.4-10.2); GFR NON-AFRICAN AMERICAN > 60
[2018-09-06 17:10] VITALS: BP 130/78; PULSE 91; RESP 18; TEMP 97.6; O2SAT 96
--- NOTE | 2018-09-08 00:14 | HP ---
HISTORY OF PRESENT ILLNESS: The patient is a 72-year-old male with history of multiple medical problems, presented with symptoms of epigastric pain that started on the day of admission associated with nausea and vomiting. The patient stated that he did not have this similar pain before as well as he also denied to have any history of ingestion of food that caused food poisoning to a household or to other persons he lives with. The patient denied to have any diarrhea. No fever, no chills. REVIEW OF SYSTEM: Negative. PAST MEDICAL HISTORY: The patient has a history of spine surgery, migraine, coronary artery disease, status post PCI, hypertension. SOCIAL HISTORY: Denied history of smoking, EtOH, or substance abuse. FAMILY HISTORY: Noncontributory. MEDICATIONS: Reviewed and ordered as per MAR. PHYSICAL EXAMINATION: GENERAL: The patient was in bed, not in any cardiopulmonary distress at the time of this examination. VITAL SIGNS: Blood pressure was 123/69, temperature 99.8, respiratory rate 20, and pulse 65. HEENT: Pupils equal, reactive to light. Normal-appearing mucosa of the conjunctivae, oropharynx and nasal membrane mucosa. NECK: Supple. No JVD. No carotid bruit. No lymph node. No thyromegaly. CHEST AND LUNGS: Bilateral symmetrical expansion. Good air exchange. No rales, no rhonchi. CARDIOPULMONARY: PMI not localized. S1, S2. No additional sounds. ABDOMEN: Normoactive bowel sounds. No tenderness. No organomegaly. No masses. EXTREMITIES: No cyanosis, no clubbing, no edema. CENTRAL NERVOUS SYSTEM: Alert, awake, oriented x3. No neurological deficit could be appreciated. LABORATORY DATA: CAT scan of the abdomen did not show any pathology except for nonobstructing renal calculi. ASSESSMENT: 1. Epigastric pain, likely secondary to gastritis that resolved spontaneously and there are no symptoms or signs of enteritis or colitis. 2. History of coronary artery disease. 3. Back pain with previous spine surgery. PLAN: Continue the patient's home medications and advance diet and if the patient will remain well until the dinner of the day of 09/06/2018, the patient will be discharged home to follow up with his primary care physician doctor in a year. Ryne Quintanilla MD [facility] # [id number]
--- NOTE | 2018-09-08 01:33 | DS ---
REASON FOR ADMISSION: This is a 72-year-old male with history of multiple medical problems who was admitted for epigastric pain and vomiting. COURSE OF HOSPITALIZATION: The patient was admitted to medical floor and he was started on IV fluids as well as resumed his medications. Symptoms of the patient resolved spontaneously and CAT scan did not show any significant abdominal pathology except for nonobstructing renal calculi. The patient went home after he tolerated lunch and dinner without any vomiting and he will follow with his primary care physician, Dr. York. FINAL DIAGNOSES: 1. Epigastric pain, likely gastritis. 2. Nonobstructing renal calculi. 3. Coronary artery disease, status post percutaneous coronary intervention. 4. Degenerative spine disease, status post spine surgery. [facility] MD Dwight
== END 2018-09-06 19:42 | disposition home or self-care (01) ==
LOC: H.ER 07:50 → H.ERHOLD 11:44 → H.MEDSURG1 14:17
PROVIDERS: ADMIT Internal Medicine; ATTEND Internal Medicine
DX: K29.70 Gastritis, unspecified, without bleeding (principal); N20.0 Calculus of kidney; Z79.02 Long term (current) use of antithrombotics/antiplatelets; Z79.82 Long term (current) use of aspirin; Z87.442 Personal history of urinary calculi; Z95.5 Presence of coronary angioplasty implant and graft; G43.909 Migraine, unspecified, not intractable, without status migrainosus; Z79.84 Long term (current) use of oral hypoglycemic drugs; E11.9 Type 2 diabetes mellitus without complications; I10 Essential (primary) hypertension; I25.10 Atherosclerotic heart disease of native coronary artery without angina pectoris; J44.9 Chronic obstructive pulmonary disease, unspecified
CPT/HCPCS: 36415; 74176; 80048; 80053; 82948; 83690; 85025; 93005; 96361; 96374; 96375; 96376; 99284; G0378; J2270; J2405; J3480; J7030

== ENCOUNTER 2019-01-27 02:33 | Observation (INO) | payer MEDICARE, MEDICAID ==
[2019-01-27 02:34] VITALS: BMI 29.8
[2019-01-27 03:01] LABS: BASO % 0.5 % (0.0-2.0); EOS # 0.2 K/uL (0.0-0.7); EOS % 1.8 % (0.0-4.0); HEMOGLOBIN 14.4 g/dL (12.0-18.0); LYMPH # 1.8 K/uL (1.0-4.3); LYMPH % 21.3 % (20.0-40.0); MEAN CELL VOLUME 84.1 fl (80.0-94.0); MEAN CORPUSCULAR HEMOGLOBIN 27.7 pg (27.0-31.0); MEAN CORPUSCULAR HGB CONC 32.9 g/dL (33.0-37.0); MEAN PLATELET VOLUME 9.4 fl (7.2-11.7); MONO % 11.3 % (0.0-10.0); NEUT # 5.6 K/uL (1.8-7.0); NEUT % 65.1 % (50.0-75.0); NRBC % 0.1 % (0.0-0.0); RBC 5.2 Mil/uL (4.40-5.90); RED CELL DISTRIBUTION WIDTH 14.2 % (11.5-14.5); WHITE BLOOD COUNT 8.6 K/uL (4.8-10.8)
--- NOTE | 2019-01-27 03:40 | ED PDOC ---
HPI: Abdomen Time Seen by Provider: 01/27/19 02:39 Chief Complaint (Nursing): Chest Pain Chief Complaint (Provider): Abdominal Pain History Per: Patient History/Exam Limitations: no limitations Onset/Duration Of Symptoms: Persistent Current Symptoms Are (Timing): Still Present Location Of Pain/Discomfort: Epigastric, Other (mid-sternal chest pain) Quality Of Discomfort: "Pain" Additional Complaint(s): 73 year old male with a history of COPD, sleep apnea, intractable abdominal pain, arthritis, asthma, kidney stones and CKD presents to the ED via EMS for evaluation of persistent mid-epigastric abdominal pain/ sub-sternal chest pain. EMS gave a dose of aspirin in route. Patient was seen in [facility]'s ED two days ago and had a CT of abdomen performed that was negative. Patient also had a echocardiogram and stress test in October of 2018 with normal ejection fraction. He offers no other complaints. PMD: none provided Past Medical History Reviewed: Historical Data, Nursing Documentation, Vital Signs Vital Signs: Last Vital Signs Temp 98.7 F 01/27/19 02:34 Pulse 95 H 01/27/19 02:34 Resp 22 01/27/19 02:34 BP 117/76 01/27/19 02:34 Pulse Ox 98 01/27/19 02:34 - Medical History PMH: Arthritis, Asthma, CAD, COPD, Fractures (Left Shoulder), HTN (NO LONGER TAKING MED.), Hypercholesterolemia, Kidney Stones, Migraine, Pulmonary Embolism ("?-NEVER CONFIRMED"), Chronic Kidney Disease, Sleep Apnea (USES CPAP AT HOME) Denies: HIV - Surgical History Surgical History: Back Surgery (CERVICAL), Cholecystectomy, Coronary Stent (X2), Endoscopy - Family History Family History: States: Unknown Family Hx - Social History Ex-Smoker (has not smoked in the last 12 months): Yes Alcohol: None Drugs: Denies - Immunization History Hx Tetanus Toxoid Vaccination: Yes Hx Influenza Vaccination: Yes (2017) Hx Pneumococcal Vaccination: (''Not sure'') - Home Medications Home Medications: Ambulatory Orders Medication Instructions Recorded SUMAtriptan succinate [Imitrex Tab] 100 mg PO DAILY 12/31/16 Zolpidem [Ambien] 10 mg PO HS 12/31/16 Ranitidine HCl [Zantac] 150 mg PO DAILY 01/04/17 Clopidogrel [Plavix] 75 mg PO DAILY #30 tab 01/11/17 Albuterol HFA [Ventolin HFA 90 1 - 2 puff IH Q6H PRN #1 inhaler 03/13/17 mcg/actuation (8 g)] Pregabalin [Lyrica] 150 mg PO BID 06/30/18 Aspirin 81 mg PO DAILY #30 tab.chew 07/02/18 MetFORMIN [glucoPHAGE] 500 mg PO BID #60 tab 07/02/18 oxyCODONE [oxyCODONE Immediate 10 mg PO TID 08/28/18 Release Tab] - Allergies Allergies/Adverse Reactions: Allergies Allergy/AdvReac Type Severity Reaction Status Date / Time Iodinated Contrast- Oral and Allergy Severe ANAPHYLAXIS Verified 01/27/19 02:39 IV Dye [Iodinated Contrast Media - IV Dye] Review of Systems ROS Statement: Except As Marked, All Systems Reviewed And Found Negative Cardiovascular: Positive for: Chest Pain Gastrointestinal: Positive for: Abdominal Pain Physical Exam - Reviewed Nursing Documentation Reviewed: Yes Vital Signs Reviewed: Yes - Physical Exam Appears: Positive for: Non-toxic, No Acute Distress Head Exam: Positive for: ATRAUMATIC, NORMAL INSPECTION, NORMOCEPHALIC Skin: Positive for: Normal Color, Warm, Dry Eye Exam: Positive for: EOMI, Normal appearance, PERRL Neck: Positive for: Normal, Painless ROM, Supple Cardiovascular/Chest: Positive for: Regular Rate, Rhythm. Negative for: Murmur Respiratory: Positive for: Normal Breath Sounds. Negative for: Respiratory Distress Gastrointestinal/Abdominal: Positive for: Soft, Tenderness (epigastric ). Negative for: Mass, Guarding, Rebound Back: Positive for: Normal Inspection Extremity: Positive for: Normal ROM Neurological/Psych: Positive for: Awake, Alert, Normal Tone - Laboratory Results Result Diagrams: 01/27/19 02:58 01/27/19 03:56 Lab Results: Troponin I Cancelled 01/27/19 02:58 Total Bilirubin Cancelled 01/27/19 02:58 AST Cancelled 01/27/19 02:58 ALT Cancelled 01/27/19 02:58 Alkaline Phosphatase Cancelled 01/27/19 02:58 Total Protein Cancelled 01/27/19 02:58 Albumin Cancelled 01/27/19 02:58 Globulin Cancelled 01/27/19 02:58 Albumin/Globulin Ratio Cancelled 01/27/19 02:58 - ECG O2 Sat by Pulse Oximetry: 98 (RA) Pulse Ox Interpretation: Normal Medical Decision Making Medical Decision Makin:45 Impression: abdominal and chest pain-- pt with multiple risk factors will need to rule out ACS despite the possibility that this could be gastritis Initial Plan: --CBC --CMP --Troponin --Lipase --CXR --Pepcid 20 mg IVP Report Date : 01/25/2019 09:24:37 My Comment : CT abdomen and pelvis Comparison: 11/04/2015 Findings: 6 millimeter nodular density at the left lung base. Left basilar atelectasis. No pleural or pericardial effusion. Liver is preserved. Prior cholecystectomy. Postsurgical prominence of the common bile duct measuring up to 9.8 millimeters. Spleen is preserved. Adrenal glands are preserved. Pancreas is preserved. Upper abdominal bowel is preserved. Right kidney: 1 centimeter calculus seen within the proximal right uterus at the UPJ junction with mild fullness of the right renal collecting system. Additional prominent scattered calculi seen throughout the right kidney for example in the lower pole measuring up to 1.2 centimeters. Additional multiple scattered calculi are seen throughout the right kidney including 6 millimeter calculi midpole as well as multiple additional calculi in the lower pole. Few small low-attenuation lesions seen within the right kidney for example in the upper pole measuring 8 millimeters, too small to adequately characterize as well as within the lower pole measuring 1.1 centimeters demonstrating a Hounsfield unit attenuation of 16, indeterminate. Left Kidney: Multiple prominent scattered calculi throughout the left kidney for example in the lower pole measuring up to 9.5 millimeters. Additional multiple scattered calculi seen in the mid and lower pole. Low-attenuation lesions seen within the left kidney for example in midpole measuring 1.2 centimeters demonstrating a Hounsfield unit attenuation 4 suggestive for a cyst. Urinary bladder is grossly preserved. Prominent prostate measuring up to 5.4 centimeters with a few punctate calcifications. Prominent seminal vesicles. Fecal retention in the colon. Appendix is within normal limits. Atherosclerotic calcification and plaque in the aorta. Few shotty para-aortic and mesenteric lymph nodes. Small fat containing umbilical hernia. Degenerative changes in the spine. Rounded sclerotic foci in the inferior aspect of L1 vertebral body. Impression: 1. 1 centimeter calculus seen within the proximal right uterus at the UPJ junction with mild fullness of the right renal collecting system. Additional prominent scattered calculi seen throughout the right kidney for example in the lower pole measuring up to 1.2 centimeters. Additional multiple scattered calculi are seen throughout the right kidney including 6 millimeter calculi midpole as well as multiple additional calculi in the lower pole. 2. Multiple prominent scattered calculi throughout the left kidney for example in the lower pole measuring up to 9.5 millimeters. Additional multiple scattered calculi seen in the mid and lower pole. 3. Few small low-attenuation lesions seen within the right kidney for example in the upper pole measuring 8 millimeters, too small to adequately characterize as well as within the lower pole measuring 1.1 centimeters demonstrating a Hounsfield unit attenuation of 16, indeterminate. 4. Low-attenuation lesions seen within the left kidney for example in midpole measuring 1.2 centimeters demonstrating a Hounsfield unit attenuation 4 sugge stive for a cyst. 5. Prominent prostate measuring up to 5.4 centimeters with a few punctate calcif ications. 6. 6 millimeter nodular density at the left lung base. Left basilar atelectasis. Additional findings as above. 05:41 Patient was resting comfortably and asleep in hospital bed for most of visit. He now complains again of chest pain. pt will need admission to observation tele for rule out ACS, rule out malignant arrythmia. 05:50 Patient will be admitted to the hospitalist, Dr. Young as Dr. York is covered by Dr Quintanilla who is away on vacation. Scribe Attestation: Documented by Amy Felder, acting as a scribe for Otto Coates MD Provider Scribe Attestation: All medical record entries made by the Scribe were at my direction and personally dictated by me. I have reviewed the chart and agree that the record accurately reflects my personal performance of the history, physical exam, medical decision making, and the department course for this patient. I have also personally directed, reviewed, and agree with the discharge instructions and disposition. Disposition - Clinical Impression Clinical Impression: Chest pain - Patient ED Disposition Is Patient to be Admitted: Yes Counseled Patient/Family Regarding: Studies Performed, Diagnosis - Disposition Disposition Time: 05:47 Condition: STABLE - Pt Status Changed To: Hospital Disposition Of: Observation
[2019-01-27 04:18] LABS: ALB/GLOB RATIO 1.4 (1.0-2.1); ALBUMIN 4.5 g/dL (3.5-5.0); ALT/SGPT 49 U/L (21-72); AST/SGOT 45 U/L (17-59); BLOOD UREA NITROGEN 15 mg/dl (9-20); CALCIUM 10.3 mg/dL (8.4-10.2); GFR NON-AFRICAN AMERICAN > 60; LIPASE 204 U/L (23-300)
[2019-01-27] MEDS ORDERED: Potassium Chloride 20 mEq ER Tab PO ONE ×5 (04:25→09:16)
[2019-01-27] MEDS ORDERED: Glucagon Recombinant 1 mg Inj IM PRN (06:10)
[2019-01-27] MEDS ORDERED: Dextrose 50% SYRINGE Inj (50 ml) IV PRN (06:10)
[2019-01-27] MEDS ORDERED: Albuterol HFA 90 mcg/actuation (8 g) IH PRN (06:11)
--- NOTE | 2019-01-27 06:20 | CP.PCM.HP ---
<FergusonAnnette - Last Filed: 01/27/19 06:58> History of Present Illness - History of Present Illness History of Present Illness: 73 year old male with a history of COPD, sleep apnea, intractable abdominal pain, arthritis, asthma, kidney stones and CKD presents to the ED brought by EMS for evaluation of persistent mid-epigastric abdominal pain/ sub-sternal chest pain. Patient reports that pain started 3 days ago in epigastrium/middle chest, not radiates, associated heartburn, no alleviating factors and aggravated when he takes his pills. Patient was seen in [facility]'s ED two days ago and had a CT performed that was negative. Patient also had a echocardiogram and stress test in October of 2018 with normal ejection fraction. Patient also endorses feeling depressed, tired and weak, reports PMD started him on a "depression pill" 3 days ago. Patient denies cough, sob, edema, diaphoresis, neck or arm pain, other abd pain, no urinary sx or changes on BM. PMD: Dr York Present on Admission - Present on Admission Any Indicators Present on Admission: No Review of Systems - Review of Systems All systems: reviewed and no additional remarkable complaints except (HPI) Past Patient History - Infectious Disease Hx of Infectious Diseases: None - Past Medical History & Family History Past Medical History?: Yes - Past Social History Alcohol: None Drugs: Denies - CARDIAC Hx Hypercholesterolemia: Yes Hx Hypertension: Yes (NO LONGER TAKING MED.) - PULMONARY Hx Asthma: Yes Hx Chronic Obstructive Pulmonary Disease (COPD): Yes Hx Pulmonary Embolism: Yes ("?-NEVER CONFIRMED") Hx Sleep Apnea: Yes (USES CPAP AT HOME) - NEUROLOGICAL Hx Migraine: Yes - HEENT Hx HEENT Problems: No - RENAL Hx Chronic Kidney Disease: Yes Hx Kidney Stones: Yes - ENDOCRINE/METABOLIC Hx Endocrine Disorders: Yes Hx Diabetes Mellitus Type 2: Yes - HEMATOLOGICAL/ONCOLOGICAL Hx Human Immunodeficiency Virus (HIV): No - INTEGUMENTARY Hx Dermatological Problems: No - MUSCULOSKELETAL/RHEUMATOLOGICAL Hx Arthritis: Yes Hx Fractures: Yes (Left Shoulder) - GASTROINTESTINAL Hx Gastrointestinal Disorders: Yes Hx Gastroesophageal Reflux: Yes - GENITOURINARY/GYNECOLOGICAL Hx Genitourinary Disorders: Yes Hx Prostate Problems: (denies) Other/Comment: KIDNEY STONES - PSYCHIATRIC Hx Psychophysiologic Disorder: No Hx Substance Use: No - SURGICAL HISTORY Hx Cholecystectomy: Yes Hx Coronary Stent: Yes (X2) - ANESTHESIA Hx Anesthesia: Yes Hx Anesthesia Reactions: No Hx Malignant Hyperthermia: No Meds Allergies/Adverse Reactions: Allergies Allergy/AdvReac Type Severity Reaction Status Date / Time Iodinated Contrast- Oral and Allergy Severe ANAPHYLAXIS Verified 01/27/19 02:39 IV Dye [Iodinated Contrast Media - IV Dye] Physical Exam - Constitutional Appears: No Acute Distress - Head Exam Head Exam: NORMAL INSPECTION - Eye Exam Eye Exam: EOMI, PERRL - ENT Exam ENT Exam: Mucous Membranes Moist - Respiratory Exam Respiratory Exam: Clear to Auscultation Bilateral, NORMAL BREATHING PATTERN. absent: Rhonchi, Wheezes - Cardiovascular Exam Cardiovascular Exam: REGULAR RHYTHM, +S1, +S2. absent: Tachycardia, Systolic Murmur - GI/Abdominal Exam GI & Abdominal Exam: Normal Bowel Sounds, Soft, Tenderness (epigastrium). absent: Distended - Extremities Exam Extremities exam: Negative for: calf tenderness, pedal edema - Neurological Exam Neurological exam: Alert, CN II-XII Intact, Oriented x3 - Skin Skin Exam: Dry, Normal Color, Warm Results - Vital Signs Recent Vital Signs: Last Vital Signs Temp 98.7 F 01/27/19 02:34 Pulse 95 H 01/27/19 02:34 Resp 22 01/27/19 02:34 BP 117/76 01/27/19 02:34 Pulse Ox 98 01/27/19 05:56 - Labs Result Diagrams: 01/27/19 02:58 01/27/19 03:56 Labs: Laboratory Results - last 24 hr 01/27/19 01/27/19 01/27/19 02:58 02:58 03:55 WBC 8.6 RBC 5.20 Hgb 14.4 Hct 43.7 MCV 84.1 D MCH 27.7 MCHC 32.9 L RDW 14.2 Plt Count 179 MPV 9.4 Neut % (Auto) 65.1 Lymph % (Auto) 21.3 Elbert % (Auto) 11.3 H Eos % (Auto) 1.8 Baso % (Auto) 0.5 Neut # (Auto) 5.6 Lymph # (Auto) 1.8 Elbert # (Auto) 1.0 H Eos # (Auto) 0.2 Baso # (Auto) 0.0 Sodium Cancelled Potassium Cancelled Chloride Cancelled Carbon Dioxide Cancelled Anion Gap Cancelled BUN Cancelled Creatinine Cancelled Est GFR ( Amer) Cancelled Est GFR (Non-Af Amer) Cancelled Random Glucose Cancelled Calcium Cancelled Total Bilirubin Cancelled AST Cancelled ALT Cancelled Alkaline Phosphatase Cancelled Troponin I Cancelled < 0.0120 Total Protein Cancelled Albumin Cancelled Globulin Cancelled Albumin/Globulin Ratio Cancelled Lipase 01/27/19 03:56 WBC RBC Hgb Hct MCV MCH MCHC RDW Plt Count MPV Neut % (Auto) Lymph % (Auto) Elbert % (Auto) Eos % (Auto) Baso % (Auto) Neut # (Auto) Lymph # (Auto) Elbert # (Auto) Eos # (Auto) Baso # (Auto) Sodium 138 Potassium 3.1 L Chloride 98 Carbon Dioxide 27 Anion Gap 16 BUN 15 Creatinine 0.7 L Est GFR ( Amer) > 60 Est GFR (Non-Af Amer) > 60 Random Glucose 159 H Calcium 10.3 H Total Bilirubin 0.5 AST 45 ALT 49 Alkaline Phosphatase 73 Troponin I Cancelled Total Protein 7.7 Albumin 4.5 Globulin 3.2 Albumin/Globulin Ratio 1.4 Lipase 204 Assessment & Plan - Assessment and Plan (Free Text) Assessment: 73 yo male with PMH of CAD, COPD, CKD and asthma admitted for evaluation and ma nagement of epigastric/chest pain. Plan: Epigastric/chest pain r/o ACS - admit to tele - EKG wnl - Troponin x1 wnl - ASA 325 mg - continue ASA 81 mg daily - GI coctel ( viscous Lidocaine, , maloox) - f/u troponin - f/u lab - continue home meds. Hypokalemia - K 3.1 - s/p KCL 40 once - for KCL 40 mg PO in 2 hrs - f/u labs Depressed - Psych consulted H/O of CAD - s/p stent - Stress test done in 2017 normal - Echo 10/2016 LVEF 45-50% - c/ home meds DVT ppx - On plavix case seen and examined with Dr Hector Richards PGY 2 <Gunner Young - Last Filed: 01/27/19 11:04> Results - Vital Signs Recent Vital Signs: Last Vital Signs Temp 98.2 F 01/27/19 07:00 Pulse 72 01/27/19 07:00 Resp 20 01/27/19 07:00 BP 122/78 01/27/19 07:00 Pulse Ox 99 01/27/19 07:00 - Labs Result Diagrams: 01/27/19 02:58 01/27/19 03:56 Labs: Laboratory Results - last 24 hr 01/27/19 01/27/19 01/27/19 02:58 02:58 03:55 WBC 8.6 RBC 5.20 Hgb 14.4 Hct 43.7 MCV 84.1 D MCH 27.7 MCHC 32.9 L RDW 14.2 Plt Count 179 MPV 9.4 Neut % (Auto) 65.1 Lymph % (Auto) 21.3 Elbert % (Auto) 11.3 H Eos % (Auto) 1.8 Baso % (Auto) 0.5 Neut # (Auto) 5.6 Lymph # (Auto) 1.8 Elbert # (Auto) 1.0 H Eos # (Auto) 0.2 Baso # (Auto) 0.0 Sodium Cancelled Potassium Cancelled Chloride Cancelled Carbon Dioxide Cancelled Anion Gap Cancelled BUN Cancelled Creatinine Cancelled Est GFR ( Amer) Cancelled Est GFR (Non-Af Amer) Cancelled POC Glucose (mg/dL) Random Glucose Cancelled Calcium Cancelled Total Bilirubin Cancelled AST Cancelled ALT Cancelled Alkaline Phosphatase Cancelled Troponin I Cancelled < 0.0120 Total Protein Cancelled Albumin Cancelled Globulin Cancelled Albumin/Globulin Ratio Cancelled Lipase 01/27/19 01/27/19 03:56 09:07 WBC RBC Hgb Hct MCV MCH MCHC RDW Plt Count MPV Neut % (Auto) Lymph % (Auto) Elbert % (Auto) Eos % (Auto) Baso % (Auto) Neut # (Auto) Lymph # (Auto) Elbert # (Auto) Eos # (Auto) Baso # (Auto) Sodium 138 Potassium 3.1 L Chloride 98 Carbon Dioxide 27 Anion Gap 16 BUN 15 Creatinine 0.7 L Est GFR ( Amer) > 60 Est GFR (Non-Af Amer) > 60 POC Glucose (mg/dL) 160 H Random Glucose 159 H Calcium 10.3 H Total Bilirubin 0.5 AST 45 ALT 49 Alkaline Phosphatase 73 Troponin I Cancelled Total Protein 7.7 Albumin 4.5 Globulin 3.2 Albumin/Globulin Ratio 1.4 Lipase 204 Attending/Attestation - Attestation I have personally seen and examined this patient.: Yes I have fully participated in the care of the patient.: Yes I have reviewed all pertinent clinical information: Yes Notes (Text): 01/27/19 10:50 I saw, examined and discussed this patient with Dr Carrillo. I agree with the assessment and plan above which represent my direct input. This is a 73 years old male with hx of XAd with coronary stents placed, comes with epigastric pain radiating up the retrosternal area, not responding to his Zantac. Chest X ray shows no infiltrate, the EKG shows NSR 95/minute with no sign of ischemia. We would treat for Peptic Ulcer Disease with Pantoprazole Q12 hours Teat Hypokalemia and Diabetes and rule out ACS with serial troponin and EKG. Gunner Young MD
[2019-01-27] MEDS ORDERED: Alum-Mag Hydrox-Simethicone Susp (30 mL) PO ONE (06:33)
[2019-01-27] MEDS ORDERED: Atrop/Hyos/Scop/PhenoB Elixir PO STA (06:49)
[2019-01-27] MEDS ORDERED: Alum-Mag Hydrox-Simethicone Susp (30 mL) PO STA (06:51)
--- NOTE | 2019-01-27 08:39 | RAD ---
Date of service: 01/27/2019 HISTORY: cp COMPARISON: Portable chest 06/29/2018. TECHNIQUE: Chest PA and lateral views FINDINGS: LUNGS: No active pulmonary disease. PLEURA: No significant pleural effusion identified. No pneumothorax apparent. CARDIOVASCULAR: No aortic atherosclerotic calcification present. Normal cardiac size. No pulmonary vascular congestion. OSSEOUS STRUCTURES: No significant abnormalities. VISUALIZED UPPER ABDOMEN: Normal. OTHER FINDINGS: None. IMPRESSION: No interval acute cardiopulmonary disease appreciated.
[2019-01-27] MEDS ORDERED: PREGABALIN 150 MG PO SCH (09:00)
[2019-01-27] MEDS ORDERED: Pantoprazole 40 mg EC Tab PO SCH (09:00)
[2019-01-27] MEDS: Pantoprazole 40 mg EC Tab PO SCH ×2 (09:12→17:28)
[2019-01-27] MEDS: Insulin Lispro (humaLOG) 100 Units/ml Inj SC SCH ×4 (09:18→22:11)
[2019-01-27] MEDS ORDERED: Pantoprazole 40 mg EC Tab PO ONE (17:29)
[2019-01-27] MEDS ORDERED: Patient's Own Med (Zolpidem [Ambien] 10 MG) PO SCH (22:00)
[2019-01-27 23:55] VITALS: RESP 20
[2019-01-28 06:11] LABS: HEMOGLOBIN 14.4 g/dL (12.0-18.0); MEAN CELL VOLUME 85.2 fl (80.0-94.0); MEAN CORPUSCULAR HEMOGLOBIN 28.2 pg (27.0-31.0); MEAN CORPUSCULAR HGB CONC 33.1 g/dL (33.0-37.0); RBC 5.12 Mil/uL (4.40-5.90); RED CELL DISTRIBUTION WIDTH 14.7 % (11.5-14.5); WHITE BLOOD COUNT 7.4 K/uL (4.8-10.8)
[2019-01-28 06:19] LABS: ALB/GLOB RATIO 1.5 (1.0-2.1); ALBUMIN 4.7 g/dL (3.5-5.0); ALT/SGPT 48 U/L (21-72); AST/SGOT 39 U/L (17-59); BLOOD UREA NITROGEN 23 mg/dl (9-20); CALCIUM 10.1 mg/dL (8.4-10.2); GFR NON-AFRICAN AMERICAN > 60
[2019-01-28 08:19] VITALS: TEMP 97.6; O2SAT 96
[2019-01-28] MEDS: Pantoprazole 40 mg EC Tab PO SCH ×2 (09:01→16:45)
[2019-01-28] MEDS: Insulin Lispro (humaLOG) 100 Units/ml Inj SC SCH ×3 (09:01→16:43)
--- NOTE | 2019-01-28 12:48 | CP.PCM.PN ---
<RobernateTomasa - Last Filed: 01/28/19 12:40> Subjective - Date & Time of Evaluation Date of Evaluation: 01/28/19 Time of Evaluation: 08:00 - Subjective Subjective: Pt is a 73 yo M admitted due to chest pain and depression. Pt seen and examined at bedside, reports he is still feeling depressed denies SI/HI, reports he was started on an unknown antidepressant by his PMD dr. Rosenbaum last week. Reports he as a hx of kidney stone and as intermittent left flank pain that radiates to LLQ, and had red urine this AM. Denies F/C/SOB/CP/N/V/D/C or dysuria. Objective - Vital Signs/Intake and Output Vital Signs (last 24 hours): Temp Pulse Resp BP Pulse Ox 97.6 F 82 20 124/79 96 01/28/19 08:19 01/28/19 08:19 01/28/19 08:19 01/28/19 08:19 01/28/19 08:19 - Medications Medications: Current Medications Acetaminophen (Tylenol 325mg Tab) 650 mg PO Q6 PRN PRN Reason: Fever >100.4 F Acetaminophen (Tylenol 325mg Tab) 650 mg PO Q6 PRN PRN Reason: Pain, moderate (4-7) Albuterol (Ventolin Hfa 90 Mcg/Actuation (8 G)) 2 puff IH RQ6 PRN PRN Reason: Wheezing Aspirin (Aspirin Chewable) 81 mg PO DAILY REPLACED BY [facility] Last Admin: 01/28/19 09:03 Dose: 81 mg Clopidogrel Bisulfate (Plavix) 75 mg PO DAILY REPLACED BY [facility] Last Admin: 01/28/19 09:03 Dose: 75 mg Dextrose (Dextrose 50% Inj) 0 ml IV STAT PRN; Protocol PRN Reason: Hypoglycemia Protocol Dextrose (Glutose 15) 0 gm PO ONCE PRN; Protocol PRN Reason: Hypoglycemia Protocol Glucagon (Glucagen Diagnostic Kit) 0 mg IM STAT PRN; Protocol PRN Reason: Hypoglycemia Protocol Insulin Human Lispro (Humalog) 0 units SC [facility]; Protocol Last Admin: 01/28/19 09:01 Dose: Not Given Ketorolac Tromethamine (Toradol) 30 mg IVP Q6 PRN PRN Reason: Pain, severe (8-10) Last Admin: 01/28/19 11:20 Dose: 30 mg Metformin HCl (Glucophage) 500 mg PO BID REPLACED BY [facility] Last Admin: 01/28/19 09:01 Dose: 500 mg Ondansetron HCl (Zofran Inj) 4 mg IVP Q6 PRN PRN Reason: Nausea/Vomiting Pantoprazole Sodium (Protonix Ec Tab) 40 mg PO BID REPLACED BY [facility] Last Admin: 01/28/19 09:01 Dose: 40 mg Pregabalin (Lyrica) 150 mg PO BID REPLACED BY [facility] Last Admin: 01/28/19 09:08 Dose: 150 mg Sumatriptan Succinate (Imitrex Tab) 100 mg PO DAILY REPLACED BY [facility] Zolpidem Tartrate (Ambien) 5 mg PO HS REPLACED BY [facility] Last Admin: 01/27/19 23:55 Dose: Not Given - Labs Labs: 01/28/19 05:40 01/28/19 05:40 - Constitutional Appears: Non-toxic, No Acute Distress - Head Exam Head Exam: ATRAUMATIC, NORMAL INSPECTION, NORMOCEPHALIC - Eye Exam Eye Exam: EOMI - ENT Exam ENT Exam: Mucous Membranes Moist - Respiratory Exam Respiratory Exam: Clear to Ausculation Bilateral. absent: Rales, Rhonchi, Wheezes - Cardiovascular Exam Cardiovascular Exam: RRR, +S1, +S2 - GI/Abdominal Exam GI & Abdominal Exam: Soft, Normal Bowel Sounds. absent: Distended, Tenderness - Extremities Exam Extremities Exam: Normal Inspection - Neurological Exam Neurological Exam: Alert, Awake, Oriented x3 Assessment and Plan - Assessment and Plan (Free Text) Assessment: 73 yo male with PMH of CAD, COPD, CKD and asthma admitted for evaluation and management of epigastric/chest pain and depression Plan: Epigastric/chest pain r/o ACS - EKG wnl - Troponin x2 negative - ASA 325 mg - continue ASA 81 mg daily - s/p GI coctail ( viscous Lidocaine, , maloox) - c/w pain meds - continue home meds Depressed - Psych consulted- called this AM- pending reccs - Pt reports he is on unknown antidepressant at home H/O of CAD - s/p stent - Stress test done in 2017 normal - Echo 10/2016 LVEF 45-50% - c/ home meds Asthma/COPD chronic, controlled c/w albuterol Q6 PRN Diabetes c/w Metformin 500mg BID diabetic diet DVT ppx - On plavix 75mg QD <Rosario Barba - Last Filed: 01/28/19 17:49> Objective - Vital Signs/Intake and Output Vital Signs (last 24 hours): Temp Pulse Resp BP Pulse Ox 97.6 F 94 H 20 104/68 96 01/28/19 16:02 01/28/19 16:02 01/28/19 16:02 01/28/19 16:02 01/28/19 16:02 - Medications Medications: Current Medications Acetaminophen (Tylenol 325mg Tab) 650 mg PO Q6 PRN PRN Reason: Fever >100.4 F Acetaminophen (Tylenol 325mg Tab) 650 mg PO Q6 PRN PRN Reason: Pain, moderate (4-7) Albuterol (Ventolin Hfa 90 Mcg/Actuation (8 G)) 2 puff IH RQ6 PRN PRN Reason: Wheezing Aspirin (Aspirin Chewable) 81 mg PO DAILY REPLACED BY [facility] Last Admin: 01/28/19 09:03 Dose: 81 mg Clopidogrel Bisulfate (Plavix) 75 mg PO DAILY REPLACED BY [facility] Last Admin: 01/28/19 09:03 Dose: 75 mg Dextrose (Dextrose 50% Inj) 0 ml IV STAT PRN; Protocol PRN Reason: Hypoglycemia Protocol Dextrose (Glutose 15) 0 gm PO ONCE PRN; Protocol PRN Reason: Hypoglycemia Protocol Glucagon (Glucagen Diagnostic Kit) 0 mg IM STAT PRN; Protocol PRN Reason: Hypoglycemia Protocol Insulin Human Lispro (Humalog) 0 units SC [facility] REPLACED BY [facility]; Protocol Last Admin: 01/28/19 16:43 Dose: Not Given Ketorolac Tromethamine (Toradol) 30 mg IVP Q6 PRN PRN Reason: Pain, severe (8-10) Last Admin: 01/28/19 11:20 Dose: 30 mg Metformin HCl (Glucophage) 500 mg PO BID REPLACED BY [facility] Last Admin: 01/28/19 16:42 Dose: 500 mg Ondansetron HCl (Zofran Inj) 4 mg IVP Q6 PRN PRN Reason: Nausea/Vomiting Pantoprazole Sodium (Protonix Ec Tab) 40 mg PO BID REPLACED BY [facility] Last Admin: 01/28/19 16:45 Dose: 40 mg Pregabalin (Lyrica) 150 mg PO BID REPLACED BY [facility] Last Admin: 01/28/19 16:45 Dose: 150 mg Sucralfate (Carafate Oral Susp) 1 gm PO QID REPLACED BY [facility] Last Admin: 01/28/19 16:42 Dose: 1 gm Sumatriptan Succinate (Imitrex Tab) 100 mg PO DAILY REPLACED BY [facility] Last Admin: 01/28/19 13:56 Dose: 100 mg Zolpidem Tartrate (Ambien) 5 mg PO HS REPLACED BY [facility] Last Admin: 01/27/19 23:55 Dose: Not Given - Labs Labs: 01/28/19 05:40 01/28/19 05:40 Attending/Attestation - Attestation Notes (Text): Chest Pain , ACS ruled out, Pain likely GERD Epigastric Pain likely from GERD Depression DM Type II - Troponin negative, no EKG change - CP and abd pain resolved - pt had recently seen his Flag Maker - DR Hutchinson , had Myocardial Stress test done w/c was normal - PPI started and Sucralfate - GI appt as outpt - complained of depression, Psych consulted - cont Home meds - ff up with PMD- Dr Laith Owen and with Dr Hutchinson chet for further work up
--- NOTE | 2019-01-28 14:24 | CP.PCM.CON ---
History of Present Illness - History of Present Illness History of Present Illness: consult requested for history of depression pt is a 73 year old male with a previous hx of depression starting few months ago, no hx of previous psychiatric hospitalizations , medical hx of COPD, sleep apnea, intractable abdominal pain, arthritis, asthma, kidney stones and CKD presents to the ED brought by EMS for evaluation of persistent mid-epigastric abdominal pain/ sub-sternal chest pain. pt on evaluation reported feeling depressed few months ago, related that to some financial problems, health and family problems pt reported at times feeling anxious and down,early insomnia, which improved since his primary care placed him on ambien , no changes in appetite denied suicidal or homicidal ideation denied perceptual disturbances, non elicited, alert awake ox3 pt reported that he has been placed on antidepressant by his PMD about a week ago, which has helped and no reported side effects Past Patient History - Infectious Disease Hx of Infectious Diseases: None - Past Medical History & Family History Past Medical History?: Yes - Past Social History Smoking Status: Light Smoker < 10 Cigarettes Daily - CARDIAC Hx Cardiac Disorders: Yes Hx Hypercholesterolemia: Yes Hx Hypertension: Yes (NO LONGER TAKING MED.) - PULMONARY Hx Respiratory Disorders: Yes Hx Asthma: Yes Hx Chronic Obstructive Pulmonary Disease (COPD): Yes Hx Pulmonary Embolism: Yes ("?-NEVER CONFIRMED") Hx Sleep Apnea: Yes (USES CPAP AT HOME) - NEUROLOGICAL Hx Neurological Disorder: Yes Hx Migraine: Yes - HEENT Hx HEENT Problems: No - RENAL Hx Chronic Kidney Disease: Yes Hx Kidney Stones: Yes - ENDOCRINE/METABOLIC Hx Endocrine Disorders: Yes Hx Diabetes Mellitus Type 2: Yes - HEMATOLOGICAL/ONCOLOGICAL Hx Blood Disorders: No Hx Human Immunodeficiency Virus (HIV): No - INTEGUMENTARY Hx Dermatological Problems: No - MUSCULOSKELETAL/RHEUMATOLOGICAL Hx Musculoskeletal Disorders: No Hx Falls: No - GASTROINTESTINAL Hx Gastrointestinal Disorders: Yes Hx Gastritis: Yes Hx Gastroesophageal Reflux: Yes - GENITOURINARY/GYNECOLOGICAL Hx Genitourinary Disorders: No - PSYCHIATRIC Hx Psychophysiologic Disorder: Yes Hx Anxiety: Yes Hx Depression: Yes Hx Substance Use: No - SURGICAL HISTORY Hx Surgeries: Yes Hx Cholecystectomy: Yes Hx Coronary Stent: Yes (X2) - ANESTHESIA Hx Anesthesia: Yes Hx Anesthesia Reactions: No Hx Malignant Hyperthermia: No Has any member of the family had a problem w/ anesthesia?: No Meds Allergies/Adverse Reactions: Allergies Allergy/AdvReac Type Severity Reaction Status Date / Time Iodinated Contrast- Oral and Allergy Severe ANAPHYLAXIS Verified 01/27/19 02:39 IV Dye [Iodinated Contrast Media - IV Dye] - Medications Medications: Current Medications Acetaminophen (Tylenol 325mg Tab) 650 mg PO Q6 PRN PRN Reason: Fever >100.4 F Acetaminophen (Tylenol 325mg Tab) 650 mg PO Q6 PRN PRN Reason: Pain, moderate (4-7) Albuterol (Ventolin Hfa 90 Mcg/Actuation (8 G)) 2 puff IH RQ6 PRN PRN Reason: Wheezing Aspirin (Aspirin Chewable) 81 mg PO DAILY [facility] Last Admin: 01/28/19 09:03 Dose: 81 mg Clopidogrel Bisulfate (Plavix) 75 mg PO DAILY [facility] Last Admin: 01/28/19 09:03 Dose: 75 mg Dextrose (Dextrose 50% Inj) 0 ml IV STAT PRN; Protocol PRN Reason: Hypoglycemia Protocol Dextrose (Glutose 15) 0 gm PO ONCE PRN; Protocol PRN Reason: Hypoglycemia Protocol Glucagon (Glucagen Diagnostic Kit) 0 mg IM STAT PRN; Protocol PRN Reason: Hypoglycemia Protocol Insulin Human Lispro (Humalog) 0 units SC [facility]; Protocol Last Admin: 01/28/19 13:55 Dose: 2 units Ketorolac Tromethamine (Toradol) 30 mg IVP Q6 PRN PRN Reason: Pain, severe (8-10) Last Admin: 01/28/19 11:20 Dose: 30 mg Metformin HCl (Glucophage) 500 mg PO BID [facility] Last Admin: 01/28/19 09:01 Dose: 500 mg Ondansetron HCl (Zofran Inj) 4 mg IVP Q6 PRN PRN Reason: Nausea/Vomiting Pantoprazole Sodium (Protonix Ec Tab) 40 mg PO BID [facility] Last Admin: 01/28/19 09:01 Dose: 40 mg Pregabalin (Lyrica) 150 mg PO BID [facility] Last Admin: 01/28/19 09:08 Dose: 150 mg Sumatriptan Succinate (Imitrex Tab) 100 mg PO DAILY [facility] Last Admin: 01/28/19 13:56 Dose: 100 mg Zolpidem Tartrate (Ambien) 5 mg PO HS [facility] Last Admin: 01/27/19 23:55 Dose: Not Given Results - Vital Signs Recent Vital Signs: Last Vital Signs Temp 97.6 F 01/28/19 08:19 Pulse 82 01/28/19 08:19 Resp 20 01/28/19 08:19 BP 124/79 01/28/19 08:19 Pulse Ox 96 01/28/19 08:19 - Labs Result Diagrams: 01/28/19 05:40 01/28/19 05:40 Labs: Laboratory Results - last 24 hr 01/27/19 01/27/19 01/28/19 15:18 22:05 05:27 WBC RBC Hgb Hct MCV MCH MCHC RDW Plt Count Sodium Potassium Chloride Carbon Dioxide Anion Gap BUN Creatinine Est GFR ( Amer) Est GFR (Non-Af Amer) POC Glucose (mg/dL) 103 122 H 122 H Random Glucose Calcium Total Bilirubin AST ALT Alkaline Phosphatase Total Protein Albumin Globulin Albumin/Globulin Ratio 01/28/19 01/28/19 01/28/19 05:40 05:40 11:19 WBC 7.4 RBC 5.12 Hgb 14.4 Hct 43.6 MCV 85.2 MCH 28.2 MCHC 33.1 RDW 14.7 H Plt Count 181 Sodium 142 Potassium 4.0 Chloride 104 Carbon Dioxide 24 Anion Gap 18 BUN 23 H Creatinine 1.0 Est GFR ( Amer) > 60 Est GFR (Non-Af Amer) > 60 POC Glucose (mg/dL) 175 H Random Glucose 114 H Calcium 10.1 Total Bilirubin 0.8 AST 39 ALT 48 Alkaline Phosphatase 80 Total Protein 7.8 Albumin 4.7 Globulin 3.1 Albumin/Globulin Ratio 1.5 Assessment & Plan - Assessment and Plan (Free Text) Assessment: depressive disorder not otherwise specified Plan: pt at current mental status denied any suicidal or homicidal ideation denied perceptual disturbances pt psychiatricaly cleared for discharge upon medical clearance
[2019-01-28] MEDS ORDERED: Sucralfate 1 gm/10 ml Oral Susp UD PO SCH ×2 (15:00→17:00)
--- NOTE | 2019-01-28 15:32 | CP.PCM.DIS ---
<Tomasa Martinez - Last Filed: 01/28/19 16:52> Provider - Provider Date of Admission: 01/27/19 05:45 Attending physician: Brianna Hawkins DO Primary care physician: Amy Mejia- PMD Consults: 01/27/19 06:46 Psychiatry Consult Stat Comment: Consulting Provider: Kimberly Hernandez Consulting Physician: Kimberly Hernandez Reason for Consult: depressed, feeling sad and tired Time Spent in preparation of Discharge (in minutes): 10 Diagnosis - Discharge Diagnosis (1) Chest pain Status: Acute Comment: resolved. unlikely cardiac. Troponins x2 negative. EKG WNL (2) Abdominal pain Status: Acute Comment: Acute, resolved. c/w home meds. rx for sucralafate. f/u with pmd and cardiology (3) Depressed Status: Acute Comment: acute, has antidepressant at home. Psych cleared patient for D/C. f/u with PMD outpt Hospital Course - Lab Results Lab Results: Most Recent Lab Values WBC 7.4 K/uL (4.8-10.8) 01/28/19 05:40 RBC 5.12 Mil/uL (4.40-5.90) 01/28/19 05:40 Hgb 14.4 g/dL (12.0-18.0) 01/28/19 05:40 Hct 43.6 % (35.0-51.0) 01/28/19 05:40 MCV 85.2 fl (80.0-94.0) 01/28/19 05:40 MCH 28.2 pg (27.0-31.0) 01/28/19 05:40 MCHC 33.1 g/dL (33.0-37.0) 01/28/19 05:40 RDW 14.7 % (11.5-14.5) H 01/28/19 05:40 Plt Count 181 K/uL (130-400) 01/28/19 05:40 MPV 9.4 fl (7.2-11.7) 01/27/19 02:58 Neut % (Auto) 65.1 % (50.0-75.0) 01/27/19 02:58 Lymph % (Auto) 21.3 % (20.0-40.0) 01/27/19 02:58 [place] % (Auto) 11.3 % (0.0-10.0) H 01/27/19 02:58 Eos % (Auto) 1.8 % (0.0-4.0) 01/27/19 02:58 Baso % (Auto) 0.5 % (0.0-2.0) 01/27/19 02:58 Neut # (Auto) 5.6 K/uL (1.8-7.0) 01/27/19 02:58 Lymph # (Auto) 1.8 K/uL (1.0-4.3) 01/27/19 02:58 [place] # (Auto) 1.0 K/uL (0.0-0.8) H 01/27/19 02:58 Eos # (Auto) 0.2 K/uL (0.0-0.7) 01/27/19 02:58 Baso # (Auto) 0.0 K/uL (0.0-0.2) 01/27/19 02:58 Sodium 142 mmol/l (132-148) 01/28/19 05:40 Potassium 4.0 MMOL/L (3.6-5.0) 01/28/19 05:40 Chloride 104 mmol/L (98-107) 01/28/19 05:40 Carbon Dioxide 24 mmol/L (22-30) 01/28/19 05:40 Anion Gap 18 (10-20) 01/28/19 05:40 BUN 23 mg/dl (9-20) H 01/28/19 05:40 Creatinine 1.0 mg/dl (0.8-1.5) 01/28/19 05:40 Est GFR ( Amer) > 60 01/28/19 05:40 Est GFR (Non-Af Amer) > 60 01/28/19 05:40 POC Glucose (mg/dL) 175 mg/dL (65-110) H 01/28/19 11:19 Random Glucose 114 mg/dL (75-110) H 01/28/19 05:40 Calcium 10.1 mg/dL (8.4-10.2) 01/28/19 05:40 Total Bilirubin 0.8 mg/dl (0.2-1.3) 01/28/19 05:40 AST 39 U/L (17-59) 01/28/19 05:40 ALT 48 U/L (21-72) 01/28/19 05:40 Alkaline Phosphatase 80 U/L (38-126) 01/28/19 05:40 Troponin I < 0.0120 ng/mL (0.00-0.120) 01/27/19 10:15 Total Protein 7.8 G/DL (6.3-8.2) 01/28/19 05:40 Albumin 4.7 g/dL (3.5-5.0) 01/28/19 05:40 Globulin 3.1 gm/dL (2.2-3.9) 01/28/19 05:40 Albumin/Globulin Ratio 1.5 (1.0-2.1) 01/28/19 05:40 Lipase 204 U/L (23-300) 01/27/19 03:56 - Hospital Course Hospital Course: 73 yo male with PMH of CAD 3 stents on plavix, COPD, CKD, kidney stones, sleep apnea, arthritis and asthma admitted to [facility] on 01/27/19 due to epigastric/ substernal chest pain and depression. Pain started 3 days prior to admission non radiating, associated heartburn, no alleviating factors and aggravated when he takes his pills. Patient was seen in [facility] [place] ED two days prior to admission and had a CT performed that was negative. Patient also had a echocardiogram and stress test in October of 2018 with normal ejection fraction. Patient also endorses feeling depressed, tired and weak, reports PMD started him on a "depression pill" 3 days ago unknown name. While at [facility] pt reported he wanted others to kill him so it wouldn't be against his sabianism. EKG WNL, troponins x2, ASA, GI cocktail, psych consulted cleared patient for discharge. Pt was discharged to resume all his home medications with the addition of sucralafate 1gm BID, with out pt follow up in [address] Loyd Hutchinson and PMD Dr. Chela Reyes. - Date & Time of H&P Date of H&P: 01/27/19 Time of H&P: 15:30 Discharge Exam - Head Exam Head Exam: ATRAUMATIC, NORMAL INSPECTION, NORMOCEPHALIC - Eye Exam Eye Exam: EOMI, Normal appearance - ENT Exam ENT Exam: Mucous Membranes Moist - Respiratory Exam Respiratory Exam: Clear to PA & Lateral. absent: Rales, Rhonchi, Wheezes - Cardiovascular Exam Cardiovascular Exam: RRR, +S1, +S2 - GI/Abdominal Exam GI & Abdominal Exam: Normal Bowel Sounds, Soft. absent: Tenderness - Extremities Exam Extremities exam: normal inspection - Neurological Exam Neurological exam: Alert, Oriented x3 - Psychiatric Exam Psychiatric exam: Depressed Discharge Plan - Discharge Medications Prescriptions: Sucralfate [Carafate Tab] 1 gm PO BID 30 Days #60 tab - Follow Up Plan Condition: STABLE Disposition: HOME/ ROUTINE Instructions: Depression, Chest Pain, Depression (DC), Acute Abdominal Pain (DC), Acute Abdominal Pain (GEN) Additional Instructions: Sucralfate 1gm BID F/u with Dr. Loyd Hutchinson- Cardiolgy and Dr. York within 1 week Referrals: Loyd Hutchinson MD [Medical Doctor] - Amy York MD [Staff Provider] - <Mary BarbaRosariojurgen Bravo - Last Filed: 01/28/19 17:08> Provider - Provider Date of Admission: 01/27/19 05:45 Attending physician: Brianna Hawkins DO Consults: 01/27/19 06:46 Psychiatry Consult Stat Comment: Consulting Provider: Kimberly Hernandez Consulting Physician: Kimberly Hernandez Reason for Consult: depressed, feeling sad and tired Hospital Course - Lab Results Lab Results: Most Recent Lab Values WBC 7.4 K/uL (4.8-10.8) 01/28/19 05:40 RBC 5.12 Mil/uL (4.40-5.90) 01/28/19 05:40 Hgb 14.4 g/dL (12.0-18.0) 01/28/19 05:40 Hct 43.6 % (35.0-51.0) 01/28/19 05:40 MCV 85.2 fl (80.0-94.0) 01/28/19 05:40 MCH 28.2 pg (27.0-31.0) 01/28/19 05:40 MCHC 33.1 g/dL (33.0-37.0) 01/28/19 05:40 RDW 14.7 % (11.5-14.5) H 01/28/19 05:40 Plt Count 181 K/uL (130-400) 01/28/19 05:40 MPV 9.4 fl (7.2-11.7) 01/27/19 02:58 Neut % (Auto) 65.1 % (50.0-75.0) 01/27/19 02:58 Lymph % (Auto) 21.3 % (20.0-40.0) 01/27/19 02:58 [place] % (Auto) 11.3 % (0.0-10.0) H 01/27/19 02:58 Eos % (Auto) 1.8 % (0.0-4.0) 01/27/19 02:58 Baso % (Auto) 0.5 % (0.0-2.0) 01/27/19 02:58 Neut # (Auto) 5.6 K/uL (1.8-7.0) 01/27/19 02:58 Lymph # (Auto) 1.8 K/uL (1.0-4.3) 01/27/19 02:58 [place] # (Auto) 1.0 K/uL (0.0-0.8) H 01/27/19 02:58 Eos # (Auto) 0.2 K/uL (0.0-0.7) 01/27/19 02:58 Baso # (Auto) 0.0 K/uL (0.0-0.2) 01/27/19 02:58 Sodium 142 mmol/l (132-148) 01/28/19 05:40 Potassium 4.0 MMOL/L (3.6-5.0) 01/28/19 05:40 Chloride 104 mmol/L (98-107) 01/28/19 05:40 Carbon Dioxide 24 mmol/L (22-30) 01/28/19 05:40 Anion Gap 18 (10-20) 01/28/19 05:40 BUN 23 mg/dl (9-20) H 01/28/19 05:40 Creatinine 1.0 mg/dl (0.8-1.5) 01/28/19 05:40 Est GFR ( Amer) > 60 01/28/19 05:40 Est GFR (Non-Af Amer) > 60 01/28/19 05:40 POC Glucose (mg/dL) 101 mg/dL (65-110) 04/16/19 16:18 Random Glucose 114 mg/dL (75-110) H 01/28/19 05:40 Calcium 10.1 mg/dL (8.4-10.2) 01/28/19 05:40 Total Bilirubin 0.8 mg/dl (0.2-1.3) 01/28/19 05:40 AST 39 U/L (17-59) 01/28/19 05:40 ALT 48 U/L (21-72) 01/28/19 05:40 Alkaline Phosphatase 80 U/L (38-126) 01/28/19 05:40 Troponin I < 0.0120 ng/mL (0.00-0.120) 01/27/19 10:15 Total Protein 7.8 G/DL (6.3-8.2) 01/28/19 05:40 Albumin 4.7 g/dL (3.5-5.0) 01/28/19 05:40 Globulin 3.1 gm/dL (2.2-3.9) 01/28/19 05:40 Albumin/Globulin Ratio 1.5 (1.0-2.1) 01/28/19 05:40 Lipase 204 U/L (23-300) 01/27/19 03:56 Attending/Attestation - Attestation I have personally seen and examined this patient.: Yes I have fully participated in the care of the patient.: Yes I have reviewed all pertinent clinical information, including history, physical exam and plan: Yes Notes (Text): Chest Pain , ACS ruled out, Pain likely GERD Epigastric Pain likely from GERD Depression DM Type II - Troponin negative, no EKG change - CP and abd pain resolved - pt had recently seen his Flavor Maker - DR Hutchinson , had Myocardial Stress test done w/c was normal - PPI started and Sucralfate - GI appt as outpt - complained of depression, Psych consulted - cont Home meds - ff up with PMD- Dr Laith Owen and with Dr Hutchinson chet for further work up
[2019-01-28 16:03] VITALS: BP 104/68; PULSE 94
== END 2019-01-28 21:19 | disposition home or self-care (01) ==
LOC: H.ER 02:33 → H.ERHOLD 05:45 → INTOOBSV 16:14 → OBSVTOIN 16:14 → H.MEDSURG1 23:49
PROVIDERS: ADMIT Student in an Organized Health Care Education/Training Program; ATTEND Student in an Organized Health Care Education/Training Program
DX: R07.89 Other chest pain (principal); E11.22 Type 2 diabetes mellitus with diabetic chronic kidney disease; E78.00 Pure hypercholesterolemia, unspecified; F32.9 Major depressive disorder, single episode, unspecified; G47.00 Insomnia, unspecified; G47.30 Sleep apnea, unspecified; I12.9 Hypertensive chronic kidney disease with stage 1 through stage 4 chronic kidney disease, or unspecified chronic kidney disease; I25.10 Atherosclerotic heart disease of native coronary artery without angina pectoris; J44.9 Chronic obstructive pulmonary disease, unspecified; J98.11 Atelectasis; K21.9 Gastro-esophageal reflux disease without esophagitis; N18.9 Chronic kidney disease, unspecified; Z59.9 Problem related to housing and economic circumstances, unspecified; Z79.02 Long term (current) use of antithrombotics/antiplatelets; Z79.82 Long term (current) use of aspirin; Z86.711 Personal history of pulmonary embolism; Z87.442 Personal history of urinary calculi; Z87.891 Personal history of nicotine dependence; Z90.49 Acquired absence of other specified parts of digestive tract; Z95.5 Presence of coronary angioplasty implant and graft; F41.9 Anxiety disorder, unspecified; G43.909 Migraine, unspecified, not intractable, without status migrainosus; K29.70 Gastritis, unspecified, without bleeding; M19.90 Unspecified osteoarthritis, unspecified site; Z79.84 Long term (current) use of oral hypoglycemic drugs; Z79.899 Other long term (current) drug therapy
CPT/HCPCS: 36415; 71046; 80053; 82948; 83690; 84484; 85025; 85027; 96374; 96375; 99285; G0378; J1885